=== PATIENT | male | born 1935 | race Caucasian/White ===

== ENCOUNTER 2016-09-19 03:28 | Observation (INO) | payer BC, MEDICARE, OTHER ==
[2016-09-19] MEDS ORDERED: ONDANSETRON 4 MG/2 ML VIAL IVP STA (03:58)
[2016-09-19] MEDS: SODIUM CHLORIDE 0.9% 1,000 ML IV SCH ×3 (04:05→23:21)
--- NOTE | 2016-09-19 04:09 | ED ---
Syncope HPI - General Chief Complaint: Dizziness Stated Complaint: SYNCOPE Time Seen by Provider: 09/19/16 03:38 Source: patient Mode of arrival: EMS Limitations: no limitations - History of Present Illness Initial Comments: Is an 80-year-old male with a history of CAD who presents emergency Department after a syncopal episode. The patient states that he was getting up to go to the bathroom and was urinating. He states that he finished urinating went over to turn off the faucet and all of a sudden states that he woke up on the ground. He did not have any preceding symptoms. He states he has a mild headache and some nausea. He does take a baby aspirin daily. Denies any backache, neck pain, or chest discomfort. He does have an abrasion to his left elbow. No history of syncope in the past. No other complaints. Review of Systems ROS Statement: Those systems with pertinent positive or pertinent negative responses have been documented in the HPI. ROS Other: All systems not noted in ROS Statement are negative. Past Medical History Past Medical History: GERD/Reflux, Myocardial Infarction (PA), Syncope Past Surgical History: Coronary Bypass/CABG Past Psychological History: No Psychological Hx Reported Smoking Status: Never smoker Past Alcohol Use History: None Reported Past Drug Use History: None Reported General Exam - General Exam Comments Initial Comments: Constitutional: Awake alert Appears comfortable Head: Normocephalic , there is a 2 similar laceration to the posterior scalp that is controlled bleeding Eyes: no conjunctival injection No scleral icterus EOMI, pupils are 4 mm reactive bilaterally Neck: No JVD Supple, no midline tenderness Heart: Regular rate rhythm normal S1-S2 no murmurs Lungs: Clear to auscultation bilaterally No wheezing No rales Abdomen: Soft nondistended nontender Extremities: Non edematous DP pulses intact Radial pulses intact, superficial abrasion to the left elbow Neuro: A&Ox3 No focal neurologic deficits Psych: Appropriate mood and affect Limitations: no limitations Course Vital Signs 09/19/16 09/19/16 03:34 04:48 Temperature 98.1 F 98.1 F Pulse Rate 67 99 Respiratory 20 20 Rate Blood Pressure 137/67 156/82 O2 Sat by Pulse 98 98 Oximetry EKG Findings - EKG Comments: EKG Findings:: EKG showing normal sinus rhythm with a rate of 70. There is a right bundle-branch block. QTC is 490. All other intervals are normal. No ectopy. No ST segment changes or T-wave inversions Procedures - Laceration Laceration #1 Time Out Performed: Yes Indication: laceration Site: scalp Size (cm): 2 Description: linear Depth: simple, single layer Pre-repair: irrigated extensively Type of Sutures: other ([place]) Number of Sutures: 3 Technique: simple, interrupted Complications: bleeding Patient Tolerated Procedure: well Medical Decision Making - Medical Decision Making Is an 80-year-old male who presents emergency Department after syncopal episode. Patient was evaluated with blood work and CAT scans. Her breathing appeared unremarkable. EKG showed a right bundle branch block. Due to the nature of the syncopal episode and the fact the patient had absolutely no preceding symptoms and with his history of heart disease and like to keep him in observation on a traffic monitor specialist and have cardiology see him. The patient does see Dr. Curtis as an outpatient. I'll place him in observation and put cardiology consult area Dr. Delacruz accepts the admission. - Lab Data Result diagrams: 09/19/16 04:10 09/19/16 04:10 Lab Results 09/19/16 09/19/16 09/19/16 Range/Units 04:10 04:10 04:10 WBC (3.8-10.6) k/uL RBC (4.30-5.90) m/uL Hgb (13.0-17.5) gm/dL Hct (39.0-53.0) % MCV (80.0-100.0) fL MCH (25.0-35.0) pg MCHC (31.0-37.0) g/dL RDW (11.5-15.5) % Plt Count (150-450) k/uL Neutrophils % % Lymphocytes % % Monocytes % % Eosinophils % % Basophils % % Neutrophils # (1.3-7.7) k/uL Lymphocytes # (1.0-4.8) k/uL Monocytes # (0-1.0) k/uL Eosinophils # (0-0.7) k/uL Basophils # (0-0.2) k/uL PT 10.7 (9.0-12.0) sec INR 1.1 (<1.1) APTT 22.2 (22.0-30.0) sec Sodium 129 L (137-145) mmol/L Potassium 3.9 (3.5-5.1) mmol/L Chloride 94 L (98-107) mmol/L Carbon Dioxide 24 (22-30) mmol/L Anion Gap 11 mmol/L BUN 11 (9-20) mg/dL Creatinine 0.80 (0.66-1.25) mg/dL Est GFR (MDRD) Af Amer >60 (>60 ml/min/1.73 sqM) Est GFR (MDRD) Non-Af >60 (>60 ml/min/1.73 sqM) Glucose 114 H (74-99) mg/dL Calcium 9.4 (8.4-10.2) mg/dL Magnesium 1.8 (1.6-2.3) mg/dL Total Bilirubin 0.9 (0.2-1.3) mg/dL AST 26 (17-59) U/L ALT 41 (21-72) U/L Alkaline Phosphatase 47 (38-126) U/L CK-MB (CK-2) 1.1 (0.0-2.4) ng/mL Troponin I <0.012 (0.000-0.034) ng/mL NT-Pro-B Natriuret Pep pg/mL Total Protein 6.5 (6.3-8.2) g/dL Albumin 4.2 (3.5-5.0) g/dL Serum Alcohol <10 mg/dL 09/19/16 09/19/16 Range/Units 04:10 04:10 WBC 6.3 (3.8-10.6) k/uL RBC 4.82 (4.30-5.90) m/uL Hgb 15.4 (13.0-17.5) gm/dL Hct 44.5 (39.0-53.0) % MCV 92.3 (80.0-100.0) fL MCH 32.0 (25.0-35.0) pg MCHC 34.7 (31.0-37.0) g/dL RDW 12.3 (11.5-15.5) % Plt Count 165 (150-450) k/uL Neutrophils % 70 % Lymphocytes % 19 % Monocytes % 7 % Eosinophils % 1 % Basophils % 0 % Neutrophils # 4.4 (1.3-7.7) k/uL Lymphocytes # 1.2 (1.0-4.8) k/uL Monocytes # 0.4 (0-1.0) k/uL Eosinophils # 0.1 (0-0.7) k/uL Basophils # 0.0 (0-0.2) k/uL PT (9.0-12.0) sec INR (<1.1) APTT (22.0-30.0) sec Sodium (137-145) mmol/L Potassium (3.5-5.1) mmol/L Chloride (98-107) mmol/L Carbon Dioxide (22-30) mmol/L Anion Gap mmol/L BUN (9-20) mg/dL Creatinine (0.66-1.25) mg/dL Est GFR (MDRD) Af Amer (>60 ml/min/1.73 sqM) Est GFR (MDRD) Non-Af (>60 ml/min/1.73 sqM) Glucose (74-99) mg/dL Calcium (8.4-10.2) mg/dL Magnesium (1.6-2.3) mg/dL Total Bilirubin (0.2-1.3) mg/dL AST (17-59) U/L ALT (21-72) U/L Alkaline Phosphatase (38-126) U/L CK-MB (CK-2) (0.0-2.4) ng/mL Troponin I (0.000-0.034) ng/mL NT-Pro-B Natriuret Pep 158 pg/mL Total Protein (6.3-8.2) g/dL Albumin (3.5-5.0) g/dL Serum Alcohol mg/dL Disposition Clinical Impression: Syncope, Scalp laceration Disposition: ADMITTED IP TO THIS [facility] Condition: Stable
[2016-09-19 04:26] LABS: Basophils % (A) 0 %; Eosinophils # (A) 0.1 k/uL (0-0.7); Eosinophils % (A) 1 %; HCT 44.5 % (39.0-53.0); HGB 15.4 gm/dL (13.0-17.5); Luc # (Auto) 0.16; Luc % (Auto) 3; Lymphocytes # (A) 1.2 k/uL (1.0-4.8); Lymphocytes % (A) 19 %; MCHC 34.7 g/dL (31.0-37.0); MCV 92.3 fL (80.0-100.0); Mean Platelet Volume 6.4; Monocytes # (A) 0.4 k/uL (0-1.0); Monocytes % (A) 7 %; Neutrophils # (A) 4.4 k/uL (1.3-7.7); Neutrophils % (A) 70 %; RBC 4.82 m/uL (4.30-5.90); RDW 12.3 % (11.5-15.5); WBC 6.3 k/uL (3.8-10.6)
[2016-09-19 04:36] LABS: ALT 41 U/L (21-72); AST 26 U/L (17-59); Alcohol <10 mg/dL; Alkaline Phosphatase 47 U/L (38-126); Anion Gap 11 mmol/L; Blood Urea Nitrogen 11 mg/dL (9-20); Calcium 9.4 mg/dL (8.4-10.2); Carbon Dioxide 24 mmol/L (22-30); Chloride 94 mmol/L (98-107); Glucose 114 mg/dL (74-99); Magnesium 1.8 mg/dL (1.6-2.3); Non-African American GFR(MDRD) >60 (>60 ml/min/1.73 sqM); Potassium 3.9 mmol/L (3.5-5.1); Sodium 129 mmol/L (137-145); Total Bilirubin 0.9 mg/dL (0.2-1.3); Total Protein 6.5 g/dL (6.3-8.2)
[2016-09-19 04:42] LABS: INR 1.1 (<1.1); Partial Thromboplastin Time 22.2 sec (22.0-30.0); Prothrombin Time 10.7 sec (9.0-12.0)
--- NOTE | 2016-09-19 04:53 | XR ---
EXAMINATION TYPE: XR chest 2V DATE OF EXAM: 09/19/2016 4:47 AM COMPARISON: 04/28/2011 HISTORY: Syncope and collapse TECHNIQUE: Frontal and lateral views of the chest are obtained. FINDINGS: There is no focal air space opacity, pleural effusion, or pneumothorax seen. The cardiac silhouette size is within normal limits. Postsurgical changes of sternotomy are present. Atherosclero tic calcification is noted in the aortic arch. The osseous structures are intact. IMPRESSION: 1. No acute cardiopulmonary process. 2. No significant interval change.
[2016-09-19 04:55] LABS: Creatine Kinase MB 1.1 ng/mL (0.0-2.4); Troponin I <0.012 ng/mL (0.000-0.034)
--- NOTE | 2016-09-19 05:01 | CT ---
EXAMINATION TYPE: CT brain ambrose wo con DATE OF EXAM: 09/19/2016 4:46 AM COMPARISON: 04/28/2011 HISTORY: syncope and collapse CT DLP: head:1162.80 body 335.60 mGycm Automated exposure control for dose reduction was used. TECHNIQUE: CT scan of the head and cervical spine are performed without contrast. FINDINGS: There is no acute intracranial hemorrhage, mass effect, or midline shift identified. The cortical sulci and ventricles are prominent with age-related atrophic changes of brain. Chronic white matter ischemic changes are noted bilaterally.. Mild ectatic changes are noted in the bilateral supr aclinoid internal carotid arteries. The globes are intact. Mucus retention cyst is noted in the right maxillary sinus with chronic sinus itis changes. Cervical spine is visualized in its entirety from C1 through upper thoracic levels and demonstrates s atisfactory alignment without evidence of acute fracture or dislocation. Prevertebral soft tissue ap pears within normal limits. The C1-C2 articulation is unremarkable. Multilevel [id number] degenerative disc disease changes are noted in the cervical spine especia lly at the levels of C3-C4, C4-C5 and C5-C6 and C6-C7 with a disc osteophyte complexes and mild leobardo lily and canal narrowing.. Carotid arterial calcification is noted. Benign-appearing calcifications are noted in the posterior s david muscles. IMPRESSION: 1. No acute process in the brain. 2. Age-related atrophic changes of brain. 3. Sinusitis changes. 4. No definite acute fracture is noted in the cervical spine. 5. Multilevel degenerative changes in the cervical spine.
[2016-09-19] MEDS ORDERED: NALOXONE 0.4 MG/ML 1 ML VIAL IV PRN (05:18)
[2016-09-19 06:11] VITALS: RESP 18
[2016-09-19 07:12] VITALS: BMI 25.2
[2016-09-19 07:28] LABS: Amorphous Sediment,Urine Rare /hpf; Appearance,Urine Cloudy (Clear); Bilirubin,Urine Negative (Negative); Glucose,Urine (UA) Negative (Negative); Ketones,Urine Trace (Negative); Leukocyte Esterase,Urine Negative (Negative); Mucus,Urine Rare /hpf; Nitrite,Urine Negative (Negative); PH, Urine 7.5 (5.0-8.0); Particle Count 7390; Protein,Urine Negative (Negative); RBC,Urine 2 /hpf (0-5); Sperm,Urine Rare /hpf; UA Billing (MACRO vs. MICRO) MICRO; Urobilinogen,Urine <2.0 mg/dL (<2.0)
--- NOTE | 2016-09-19 09:23 | US ---
EXAMINATION TYPE: US carotid duplex BILAT DATE OF EXAM: 09/19/2016 9:04 AM COMPARISON: NONE CLINICAL HISTORY: syncope. Patient states he fell at home and woke up on the floor, does not remember falling. EXAM MEASUREMENTS: RIGHT: Peak Systolic Velocity (PSV) cm/sec ----- Right CCA: 95.5 ----- Right ICA: 85.6 ----- Right ECA: 115.1 ICA/CCA ratio: 0.9 RIGHT: End Diastole cm/sec ----- Right CCA: 14.2 ----- Right ICA: 17.5 ----- Right ECA: 11.5 LEFT: Peak Systolic Velocity (PSV) cm/sec ----- Left CCA: 121.0 ----- Left ICA: 84.5 ----- Left ECA: 114.5 ICA/CCA ratio: 0.7 LEFT: End Diastole cm/sec ----- Left CCA: 14.4 ----- Left ICA: 17.5 ----- Left ECA: 12.8 VERTEBRALS (direction of flow): Right Vertebral: Antegrade Left Vertebral: Antegrade IMPRESSION: No significant stenosis seen, mild bilateral plaque. Patient states he has his carotids looked at yearly through cardiac associates. Criteria for Assigning % of Stenosis / Diameter reduction (Estimation based on the indirect measurements of the internal carotid artery velocities (ICA PSV). 1. Normal (no stenosis)=ICA PSV < 125 cm/s: ratio < 2.0: ICA EDV<40 cm/s. 2. Less than 50% stenosis=ICA PSV < 125 cm/s: ratio < 2.0: ICA EDV<40 cm/s. 3. 50 to 69% stenosis=ICA PSV of 125 to 230 cm/s: ration 2.0 ? 4.0: ICA EDV 40-100 cm/s. 4. Greater than 70% stenosis to near occlusion= ICA PSV > 230 cm/s: ratio > 4.0: ICA EDV > 100 cm/s. 5. Near occlusion= ICA PSV velocities may be low or undetectable: variable ratio and ICA EDV. 6. Total occlusion=unable to detect flow.
--- NOTE | 2016-09-19 11:17 | CONS ---
DATE OF CONSULTATION: CHIEF COMPLAINT: Syncope. Clif is an 80-year-old gentleman with history of coronary artery disease, status post CABG, who comes to the hospital having had an episode of syncope. The patient got up in the middle of the night to go to bathroom and suddenly found himself on the floor. He had mild laceration in his arm and then in the back of his head. He was somewhat incontinent. he denies chest pain, difficulty in breathing. No focal neurological deficit. It came on spontaneously and resolved on its own. It was a severe problem. At the time of my evaluation this morning, patient appears comfortable at rest and is free of symptoms. He has had one set of troponin that is negative. EKG shows bifascicular block. The patient's syncope could be related to bradyarrhythmia, but so far we have not documented any. We are going to watch him on telemetry, obtain serial CPKs, obtain a d-dimer to rule out pulmonary embolism. I reviewed his work-up and I will make every effort to obtain his records from the office. He sees my associate, Dr. Curtis. Past medical history is significant for coronary artery disease, status post CABG, dyslipidemia, also hypertension and vertigo. MEDICATIONS: He is on Crestor 10 mg daily, ramipril 10 daily, Antivert 25 t.i.d. on a p.r.n. basis, HydroDIURIL, aspirin and vitamins. ALLERGIES: No known drug allergies. FAMILY HISTORY: Negative for premature coronary artery disease. SOCIAL HISTORY: Negative for smoking, EtOH abuse, or drug abuse. REVIEW OF SYSTEMS: HEENT: Unremarkable. CARDIAC: As described above. RESPIRATORY: Negative. GI: Negative. GENITOURINARY: Negative. ALLERGY/IMMUNOLOGY: Negative. SKIN: Negative. MUSCULOSKELETAL: Negative. ENDOCRINE: Negative. DERMATOLOGIC: Negative. CONSTITUTIONAL: Negative. NEUROLOGICAL: Significant for syncope. HEME: Negative. ONCOLOGICAL: Negative. On exam he is comfortable at rest. Afebrile. Vital signs are stable. There is no jugular venous distention. Carotid upstroke is normal. There is no bruit. Chest exam reveals good air entry bilaterally. Heart exam reveals first and second heart sounds and a systolic murmur at the apex and an ejection systolic murmur in the aortic area. Abdomen is soft. Exam of the extremities did not reveal any edema. Peripheral pulses are felt. Orthostatics are to be documented. Labs show a hemoglobin of 15.4, platelet count is 165. Creatinine is 0.8. Potassium is 3.9. BNP is normal. The first troponin is negative. Alcohol level is negative. ASSESSMENT: 1. Syncope; rule out cardiac causes. 2. Coronary artery disease, status post coronary artery bypass graft. 3. Abnormal EKG. 4. Hypertension. 5. Dyslipidemia. PLAN: I am going to obtain a 2-D echo, carotid duplex continue with the troponins, watch him on telemetry. If there are no documented bradyarrhythmias and his initial work-up is negative, we should be able to discharge him home tomorrow morning and arrange follow-up with Dr. Curtis to consider further work-up as outpatient including loop recorder and stress test. There is a high clinical probability that we are dealing with the bradycardia as a cause for his syncope.
[2016-09-19 12:15] LABS: Creatine Kinase 45 U/L (55-170)
[2016-09-19 12:29] LABS: Creatine Kinase MB 0.9 ng/mL (0.0-2.4); Troponin I <0.012 ng/mL (0.000-0.034)
--- NOTE | 2016-09-19 14:49 | HP ---
DATE OF ADMISSION: CHIEF COMPLAINT: Syncope. HISTORY OF PRESENT ILLNESS: Mr. Rodriges is an 80-year-old male with a past medical history of coronary artery disease, status post coronary artery bypass graft, GERD, hyperlipidemia, hypertension, admitted to the hospital after having a syncopal episode at home. Patient does not remember what happened but his is at the bedside and stated that he woke up around quarter to twelve in the night and she thought he was going to the bathroom but when she checked on him around 12, he was found in the bathroom sitting on a chair and had a laceration in the back of his head. The patient states he does not remember what has happened but he woke up the night to use the restroom and then tried to urinate and does not remember what happened after that her. The patient had laceration with two sutures that were done in the ER. Patient denies having any chest pain. No blurring of vision. No focal weakness. No slurring of his speech. No tongue bite. Patient is compliant with his medications. Denies having any fevers. He states that he was in his usual health the night before when he went to bed. REVIEW OF SYSTEMS: All 13 review of systems are done and negative except for the ones mentioned above. Past medical history significant for coronary artery disease, GERD, hypertension. PAST SURGICAL HISTORY: Positive for coronary artery bypass grafting, CABG. PAST SURGICAL HISTORY: Adenoidectomy, appendectomy and a tonsillectomy. SOCIAL HISTORY: Never a smoker. Occasional alcohol and no drug abuse. FAMILY HISTORY: Positive for coronary artery disease and stroke and TIA and lung cancer. ALLERGIES: No known drug allergies. The patient's home medications: 1. He is on glucosamine/chondroitin sulfate supplements. 2. Aspirin 320 mg p.o. daily. 3. Ramipril 10 mg p.o. daily. 4. Crestor 10 mg p.o. daily. 5. Hydrochlorothiazide 25 mg p.o. daily. 6. Meclizine 12.5 mg 3 times a day for vertigo. On examination, patient's vital signs temperature 97, heart rate 74, respiratory rate 18, blood pressure 144/72, saturating at 98% on room air. GENERAL EXAMINATION: Patient appears to be no acute distress, sitting comfortably in the bed, appears to have no complaints. HEAD: Atraumatic, normocephalic. EYES: Pupils, round, and reactive to light. NECK: No JVD. No thyromegaly. CARDIOVASCULAR: S1, S2 heard. No additional sounds. RESPIRATORY: Bilateral breath sounds are positive. No wheeze or crackles. ABDOMEN: Soft, nontender, no organomegaly. Bowel sounds are positive. EXTREMITIES: No edema. No cyanosis, no clubbing. SHIPPING RECEIVING MANAGER: Alert and oriented times three. No focal neurological deficits. MUSCULOSKELETAL: No joint swelling or deformity. PSYCHIATRIC: Appropriate mood and affect. Patient's labs: Sodium 129, potassium 3.9, chloride 94, bicarb 24, BUN 11, creatinine 0.80. Troponin less than 0.012 x 2, white count is 6.3, hemoglobin is of 15.4, platelets of 165, d-dimer is 0.30. The patient had a CAT scan of his head and neck, negative for any acute process and a chest x-ray which is showing no acute cardiopulmonary process, carotid artery Doppler that was done showing no significant stenosis but mild bilateral plaque seen. ASSESSMENT AND PLAN: 1. Syncope most likely it is vasovagal secondary to arrhythmias. 2. History of coronary artery disease, status post coronary artery bypass graft. 3. Hypertension. 4. Gastroesophageal reflux disease. 5. Vertigo. 6. Hearing disorder. 7. Chronic osteoarthritis of multiple joints. PLAN: The patient is being worked up for syncopal episode. He had a carotid artery Doppler. A CT scan of his head was negative. Echocardiogram pending at this point of time. Syncope can be secondary to vasovagal episode of bradyarrhythmias. We will monitor overnight for any other ( ). Further recommendations to follow depending on the progress of the patient and the treatment care plan was discussed in detail with the and daughter, who are at the bedside.
[2016-09-19 17:25] LABS: Creatine Kinase 54 U/L (55-170)
[2016-09-19 17:38] LABS: Creatine Kinase MB 0.9 ng/mL (0.0-2.4); Troponin I <0.012 ng/mL (0.000-0.034)
[2016-09-20 08:02] VITALS: BP 148/67; PULSE 58; TEMP 98.2
[2016-09-20] MEDS ORDERED: ASPIRIN 325 MG TAB PO SCH (09:00)
[2016-09-20] MEDS ORDERED: LISINOPRIL 20 MG TAB PO SCH (09:00)
[2016-09-20] MEDS ORDERED: ATORVASTATIN 20 MG TAB PO SCH (09:00)
--- NOTE | 2016-09-20 09:08 | PN ---
This is an 80-year-old gentleman who is admitted to hospital with syncope. His work-up so far has been negative. Carotid duplex study did not reveal significant carotid stenosis. An echocardiogram, official report is not available to me, showed normal LV function and he did not have any documented high-grade AV block. He has bradycardia with heart rates dropping as far 45 but no pauses, but has underlying bifascicular block. He has not had any further syncopal events and wants to go home. On exam he is comfortable at rest. Vital signs are stable. There is no jugular venous distention. Carotid upstroke is normal. There is no bruit. Chest exam reveals good air entry bilaterally. Heart exam reveals first and second heart sounds. Systolic murmur at the left lower sternal border. Abdomen is soft. Exam of extremities did not reveal edema. Peripheral pulses are felt. ASSESSMENT: 1. Syncope. 2. Abnormal electrocardiogram. 3. History of coronary artery disease, status post coronary artery bypass graft. PLAN: Patient is doing well. He is stable to be discharged home. His syncope could be due to bradycardia and the patient will benefit from ( ). He is going to follow up with Dr. Curtis, his primary ingredient handler.
--- NOTE | 2016-09-21 17:28 | DS ---
DATE OF ADMISSION: 09/19/2016 DATE OF DISCHARGE: 09/20/2016 HOSPITAL COURSE: Mr. Rodriges is an 80-year-old male with a past medical history of coronary artery disease, status post coronary artery bypass graft, GERD, hypertension, hyperlipidemia, admitted to the hospital after having a syncopal episode at home. Patient did have laceration in the back of his skull that has been sutured in the ER. Cardiology was consulted for his syncopal episode. Patient had also had CAT scan of his head which was within normal limits. Carotid artery Doppler within normal limits. He was slightly bradycardic and cardiology did follow the patient and cleared the patient to be discharged as there were no acute events on his athletic monitor. Patient states that he is back to baseline and denies having any complaints. Consults obtained: Cardiology. Procedures done during hospital stay: Carotid artery Doppler, CAT scan of the chest that have been within normal limits. DISCHARGE DIAGNOSES: 1. Syncope secondary to vasovagal arrhythmias. 2. History of coronary artery disease, status post coronary artery bypass graft. 3. Hypertension. 4. Gastroesophageal reflux disease. 5. Vertigo. 6. Hearing disorder. 7. Chronic osteoarthritis of multiple joints. DISCHARGE MEDICATIONS: 1. Aspirin 325 mg p.o. daily. 2. Flonase one spray each nostril for congestion. 3. Glucosamine chondroitin 1 tablet p.o. daily. 4. Hydrochlorothiazide 25 mg p.o. daily. 5. Meclizine 12.5 mg p.o. 3 times a day p.r.n. for vertigo. 6. Ramipril 10 mg p.o. daily. 7. ( ) 10 mg p.o. daily. 8. Vitamin supplements 1 tablet p.o. daily. Follow-up: The patient is advised to follow up with Dr. Curtis in 1 to 2 weeks. As there was a suspicion for any underlying arrhythmias, patient would be benefited by having a loop recorder. This was explained to the patient and his family members at the bedside. DIET: Cardiac diet. Activity as tolerated and follow-up: Advised to follow up with his primary care physician Dr. Dumont in 2 to 3 days and cardiology, Dr. Curtis in one week. The patient is being discharged home in stable condition today.
--- NOTE | 2016-09-22 09:54 | ECHOF ---
Referral Reason:syncope MEASUREMENTS -------- HEIGHT: 172.7 cm WEIGHT: 75.3 kg BP: 144/72 IVSd: 1.0 cm (0.6 - 1.1) LVIDd: 4.7 cm (3.9 - 5.3) LVPWd: 1.2 cm (0.6 - 1.1) IVSs: 2.0 cm LVIDs: 2.0 cm LVPWs: 1.8 cm Ao Diam: 3.6 cm (2.0 - 3.7) AV Cusp: 1.5 cm (1.5 - 2.6) LA Diam: 2.5 cm (2.7 - 3.8) MV EXCURSION: 14.924 mm (> 18.000) MV EF SLOPE: 62 mm/s (70 - 150) EPSS: 0.7 cm MV E Rolo: 0.78 m/s MV DecT: 269 ms MV A Rolo: 0.87 m/s MV E/A Ratio: 0.89 AR PHT: 219 ms RAP: 5.00 mmHg RVSP: 12.67 mmHg FINDINGS -------- Sinus rhythm. This was a technically good study. There is mild concentric left ventricular hypertrophy. Overall left ventricular systolic function is normal with, an EF between 55 - 60 %. The right ventricle is normal in size and function. The left atrium is normal in size. The right atrium is normal in size. Aortic valve is trileaflet and is mildly thickened. There is mild aortic regurgitation. The mitral valve leaflets are mildly thickened. Mild mitral annular calcification present. Mild mitral regurgitation is present. Mild tricuspid regurgitation present. The right ventricular systolic pressure, as measured by Doppler, is 12.67mmHg. Pulmonic valve appears structurally normal. The aortic root size is normal. The pericardium is normal. CONCLUSIONS -------- 1. Sinus rhythm. 2. The mitral valve leaflets are mildly thickened. 3. Mild mitral annular calcification present. 4. Mild mitral regurgitation is present. 5. Mild tricuspid regurgitation present. 6. The right ventricular systolic pressure, as measured by Doppler, is 12.67mmHg. 7. Pulmonic valve appears structurally normal. 8. The aortic root size is normal. 9. The pericardium is normal. 10. This was a technically good study. 11. There is mild concentric left ventricular hypertrophy. 12. Overall left ventricular systolic function is normal with, an EF between 55 - 60 %. 13. The right ventricle is normal in size and function. 14. The left atrium is normal in size. 15. The right atrium is normal in size. 16. Aortic valve is trileaflet and is mildly thickened. 17. There is mild aortic regurgitation. PRINTED CIRCUIT BOARDS SOLDER LEVELER: Danita Ordoñez RDCS
== END 2016-09-20 11:31 | disposition home or self-care (01) ==
LOC: EC 03:28 → 3OBS 05:19
PROVIDERS: ADMIT Hospitalist; ATTEND Hospitalist
DX: R00.1 Bradycardia, unspecified (principal); I45.2 Bifascicular block; I25.10 Atherosclerotic heart disease of native coronary artery without angina pectoris; R55 Syncope and collapse; R42 Dizziness and giddiness; I10 Essential (primary) hypertension; E78.5 Hyperlipidemia, unspecified; S01.01XA Laceration without foreign body of scalp, initial encounter; I25.2 Old myocardial infarction; I45.10 Unspecified right bundle-branch block; K21.9 Gastro-esophageal reflux disease without esophagitis; M15.9 Polyosteoarthritis, unspecified; Z82.3 Family history of stroke; Z95.1 Presence of aortocoronary bypass graft; R51 Headache; R11.0 Nausea; S50.312A Abrasion of left elbow, initial encounter; H91.90 Unspecified hearing loss, unspecified ear; W19.XXXA Unspecified fall, initial encounter; Y93.89 Activity, other specified; Y92.002 Bathroom of unspecified non-institutional (private) residence as the place of occurrence of the external cause; Z79.82 Long term (current) use of aspirin; Z79.899 Other long term (current) drug therapy
CPT/HCPCS: 12001; 99285; 96374; 96361 ×2; 36415; 93005; 93306; 85379; 83880; 80053; 82550; 82553; 83735; 84484; 85025; 85610; 85730; 81001; 80320; 71020; 93880; 72125; 70450; G0378 ×2; J2405

== ENCOUNTER → 2016-10-07 | Outpatient (CLI) | payer MEDICARE ==
[2016-10-07 08:02] LABS: Anion Gap 10 mmol/L; Blood Urea Nitrogen 14 mg/dL (9-20); Calcium 9.4 mg/dL (8.4-10.2); Carbon Dioxide 26 mmol/L (22-30); Chloride 106 mmol/L (98-107); Cholesterol 137 mg/dL (<200); Glucose 111 mg/dL (74-99); HDL Cholesterol 57 mg/dL (40-60); Non-African American GFR(MDRD) >60 (>60 ml/min/1.73 sqM); Potassium 4.9 mmol/L (3.5-5.1); Sodium 142 mmol/L (137-145); Triglycerides 56 mg/dL (<150)
== END | disposition home or self-care (01) ==
LOC: LABWHC1 07:09
PROVIDERS: ATTEND Internal Medicine Cardiovascular Disease
DX: I25.10 Atherosclerotic heart disease of native coronary artery without angina pectoris (principal); E78.5 Hyperlipidemia, unspecified; E87.1 Hypo-osmolality and hyponatremia
CPT/HCPCS: 36415; 80048; 80061

== ENCOUNTER 2017-01-27 12:05 | Day surgery (SDC) | payer MEDICARE ==
[2017-01-25 16:13] VITALS: BMI 24.7
[~2017-01-27 12:05] MED LIST: LACTATED RINGERS 1,000 ML IV SCH; LIDOCAINE 1% 20 ML VIAL (10MG/ML) FOR IV START INTRADERMA PRN; MOXIFLOXACIN HCL 0.5% DROPS 3 ML BTL OP ONE; ONDANSETRON 4 MG/2 ML VIAL IVP ONE; TETRACAINE 0.5% OPHTH (PF) DROPS 4 ML BTL OP ONE; TIMOLOL 0.5% OPHTH SOLN (PF) 0.2 ML DROPERETTE OP ONE
[2017-01-27] MEDS: CYCLOPENTOLATE 1% OPHTH SOLN 2 ML BTL OP ONE ×4 (12:58→14:45)
[2017-01-27] MEDS: PHENYLEPHRINE 2.5% OPHTH DRP 2ML OP NR ×4 (13:01→14:49)
[2017-01-27 13:06] VITALS: RESP 16; TEMP 97.4
[2017-01-27] MEDS ORDERED: EPINEPHrine (PF) 0.3 ML in BALANCED SALT IRRIG SOLN COMB2 500 ML IRRIGATION ONE (15:18)
[2017-01-27] MEDS ORDERED: HYALURONATE SODIUM INTRAOCULAR 1 EACH SYRINGE (12MG/ML) INTRAOCULA ONE (15:22)
[2017-01-27] MEDS ORDERED: LIDOCAINE 1% (PF) 10MG/ML VIAL MISCELLANE ONE (15:22)
[2017-01-27] MEDS ORDERED: BALANCED SALT IRRIG SOLN COMB2 15 ML IRRIG.SOLN INTRAOCULA ONE (15:22)
--- NOTE | 2017-01-27 15:40 | P.OP ---
Date of Procedure: 01/27/17 Preoperative Diagnosis: NS Postoperative Diagnosis: same Procedure(s) Performed: PIOL, OS Implants: PCB00 20.50 Anesthesia: MAC Surgeon: Migue Dean Estimated Blood Loss (ml): 0 IV fluids (ml): 0 Pathology: none sent Condition: stable Disposition: same day Indications for Procedure: blurry vision Operative Findings: No complications Description of Procedure:
[2017-01-27 16:00] VITALS: BP 146/71; PULSE 62
--- NOTE | 2017-01-28 09:02 | OP ---
DATE OF SERVICE: 01/27/2017 SURGEON: LINDSAY FERGUSON MD OFFICE SUPERVISOR: PREOPERATIVE DIAGNOSIS: Nuclear sclerosis. POSTOPERATIVE DIAGNOSIS: Nuclear sclerosis. OPERATION: Phacoemulsification of cataract and intraocular lens implant of the left eye. ANESTHESIA: ESTIMATED BLOOD LOSS: Zero. SPECIMENS REMOVED: None. COMPLICATIONS: OPERATIVE FINDINGS: NARRATIVE: After obtaining the appropriate consent, the patient was brought to the Operating Room where the patient was placed under cardiac monitoring and prepped and draped in the usual sterile manner. At the 5 o'clock position a 15 degree super sharp blade was used to create a paracentesis followed by instillation of 1% Xylocaine MPF 50:50 mix with BSS into the anterior chamber. This was followed by Amvisc to stabilize the anterior chamber. At the 3 o'clock position a self-sealing corneal flap incision was created using 2.8 mm reina keratome. A cystotome was used to initiate a continuous tear capsulorrhexis which was completed with the Utrata forceps. A Binkhorst cannula was used to hydrodissect the lens nucleus followed by hydrodelineation. Phacoemulsification of the lens was performed utilizing phacochop in 25.44 seconds at 9% power. The remaining cortical material was removed using the irrigation aspiration mode followed by additional 1% Xylocaine MPF into the anterior chamber followed by viscoelastic to stabilize the capsular bag. An RAYMOND PCB00 20.5 Diopter posterior chamber lens was placed into the capsular bag without difficulty. The remaining viscoelastic material was removed from the anterior chamber with the irrigation/aspiration. Balanced salt solution was used to normalize the intraocular pressure. The incision was checked for watertight integrity. The patient then received 2 drops of 0.5% timolol followed by 2 drops Vigamox, was lightly patched and shielded in the usual manner. There were no complications from the procedure. The patient tolerated the procedure well and was returned to recovery in good condition.
== END 2017-01-27 16:22 | disposition home or self-care (01) ==
LOC: OR 12:05
PROVIDERS: ATTEND Ophthalmology
DX: H25.12 Age-related nuclear cataract, left eye (principal); Z79.82 Long term (current) use of aspirin; Z95.1 Presence of aortocoronary bypass graft; I10 Essential (primary) hypertension; I25.10 Atherosclerotic heart disease of native coronary artery without angina pectoris; E78.5 Hyperlipidemia, unspecified; K21.9 Gastro-esophageal reflux disease without esophagitis; Z79.899 Other long term (current) drug therapy
CPT/HCPCS: 66984; C1780; J2405; J0171; J2001

== ENCOUNTER 2017-02-10 06:57 | Day surgery (SDC) | payer MEDICARE ==
[~2017-02-10 06:57] MED LIST changes: +DEXAMETHASONE SOD PHOSPHATE 10 MG/ML 1 ML VIAL IV ONE; +HYDROmorphone 1 MG/ML 1 ML SYRINGE IVP PRN; +MIDAZOLAM 2 MG/2 ML VIAL IV PRN; +SCOPOLAMINE 1.5MG/72HR PATCH TRANSDERM ONE
[2017-02-10] MEDS: CYCLOPENTOLATE 1% OPHTH SOLN 2 ML BTL OP ONE ×3 (07:12→07:32)
[2017-02-10 07:15] VITALS: TEMP 97.8
[2017-02-10] MEDS: PHENYLEPHRINE 2.5% OPHTH DRP 2ML OP NR ×3 (07:17→07:37)
[2017-02-10] MEDS ORDERED: EPINEPHrine (PF) 0.3 ML in BALANCED SALT IRRIG SOLN COMB2 500 ML IRRIGATION ONE (08:45)
[2017-02-10] MEDS ORDERED: MIDAZOLAM 2 MG/2 ML VIAL ONE (08:45)
[2017-02-10] MEDS ORDERED: HYALURONATE SODIUM INTRAOCULAR 1 EACH SYRINGE (12MG/ML) INTRAOCULA ONE (08:50)
[2017-02-10] MEDS ORDERED: BALANCED SALT IRRIG SOLN COMB2 15 ML IRRIG.SOLN IRRIGATION ONE (08:50)
[2017-02-10] MEDS ORDERED: LIDOCAINE 1% (PF) 10MG/ML VIAL MISCELLANE ONE (08:51)
--- NOTE | 2017-02-10 09:16 | P.OP ---
Date of Procedure: 02/10/17 Preoperative Diagnosis: NS Postoperative Diagnosis: same Procedure(s) Performed: PIOL, OD Implants: PCB00 20.50 Anesthesia: MAC Surgeon: Migue Dean Estimated Blood Loss (ml): 0 IV fluids (ml): 0 Pathology: none sent Condition: stable Disposition: same day Indications for Procedure: blurry vision Operative Findings: No complications Description of Procedure:
[2017-02-10 09:43] VITALS: BP 185/86; PULSE 57
--- NOTE | 2017-02-13 14:09 | OP ---
PROCEDURE: Phacoemulsification of cataract and intraocular lens implant of the right eye. PREOPERATIVE DIAGNOSIS: Nuclear sclerosis. Viscoelastic is Amvisc. Phacoemulsification time is 17.29 seconds at 9% power. Implant is an [id number] 20.5 diopters. MTDD
== END 2017-02-10 09:58 | disposition home or self-care (01) ==
LOC: OR 06:57
PROVIDERS: ATTEND Ophthalmology
DX: H25.11 Age-related nuclear cataract, right eye (principal); H04.123 Dry eye syndrome of bilateral lacrimal glands; H52.03 Hypermetropia, bilateral; H52.4 Presbyopia; H00.023 Hordeolum internum right eye, unspecified eyelid; H00.026 Hordeolum internum left eye, unspecified eyelid; I10 Essential (primary) hypertension; I25.10 Atherosclerotic heart disease of native coronary artery without angina pectoris; E78.5 Hyperlipidemia, unspecified; Z87.891 Personal history of nicotine dependence; H91.90 Unspecified hearing loss, unspecified ear; K21.9 Gastro-esophageal reflux disease without esophagitis; Z96.1 Presence of intraocular lens; Z95.1 Presence of aortocoronary bypass graft; Z79.899 Other long term (current) drug therapy; Z79.82 Long term (current) use of aspirin
CPT/HCPCS: 66984; C1780; J2250; J0171; J2001

== ENCOUNTER → 2017-11-02 | Outpatient (CLI) | payer MEDICARE ==
[2017-11-02 08:04] LABS: ALT 30 U/L (21-72); AST 22 U/L (17-59); Cholesterol 149 mg/dL (<200); HDL Cholesterol 61 mg/dL (40-60); LDL Cholesterol,Calculated 74 mg/dL (0-99); Triglycerides 72 mg/dL (<150)
== END | disposition home or self-care (01) ==
LOC: LABWHC1 06:46
PROVIDERS: ATTEND Internal Medicine Cardiovascular Disease
DX: E78.5 Hyperlipidemia, unspecified (principal)
CPT/HCPCS: 36415; 80061; 84450; 84460

== ENCOUNTER → 2019-07-04 | Outpatient (CLI) | payer MEDICARE ==
[2019-07-04 08:46] LABS: Basophils % (A) 1 %; Eosinophils # (A) 0.2 k/uL (0-0.7); Eosinophils % (A) 5 %; HCT 47.6 % (39.0-53.0); HGB 16.1 gm/dL (13.0-17.5); Lymphocytes # (A) 1.6 k/uL (1.0-4.8); Lymphocytes % (A) 33 %; MCH 32.5 pg (25.0-35.0); MCHC 33.8 g/dL (31.0-37.0); MCV 96.1 fL (80.0-100.0); Mean Platelet Volume 6.6; Monocytes # (A) 0.3 k/uL (0-1.0); Monocytes % (A) 6 %; Neutrophils # (A) 2.6 k/uL (1.3-7.7); Neutrophils % (A) 54 %; Platelet Count 153 k/uL (150-450); RBC 4.95 m/uL (4.30-5.90); RDW 12.7 % (11.5-15.5); WBC 4.9 k/uL (3.8-10.6)
[2019-07-04 15:51] LABS: African American GFR (CKD) 90.6 (60.0-200.0); Albumin 4.5 g/dL (3.80-4.90); Albumin/Globulin Ratio 2.65 (1.60-3.17); Anion Gap 8.8 mmol/L (4.00-12.00); BUN/Creat Ratio 13.33 Ratio (12.00-20.00); Calcium 9.3 mg/dL (8.7-10.3); Carbon Dioxide 26.2 mmol/L (21.6-31.8); Chol/HDL Ratio 2.82; Globulin 1.7 g/dL (1.6-3.3); LDL Cholesterol,Calculated 87.4 mg/dL (0.0-131.0); Non-African American GFR(CKD) 78.2 (60.0-200.0); Potassium 4.7 mmol/L (3.5-5.5); Total Protein 6.2 g/dL (6.2-8.2); VLDL Calculation 14.6 mg/dL (5.00-40.00)
== END | disposition home or self-care (01) ==
LOC: LABWHC1 07:38
PROVIDERS: ATTEND Family Medicine
DX: I10 Essential (primary) hypertension (principal); E11.9 Type 2 diabetes mellitus without complications; R97.20 Elevated prostate specific antigen [PSA]; Z79.899 Other long term (current) drug therapy
CPT/HCPCS: 36415; 80053; 80061; 82306; 84153; 84443; 85025

== ENCOUNTER → 2020-03-16 | Outpatient (CLI) | payer MEDICARE ==
--- NOTE | 2020-03-16 08:59 | CT ---
EXAMINATION TYPE: CT lumbar spine wo con DATE OF EXAM: 03/16/2020 COMPARISON: None HISTORY: Low back pain with right leg weakness. CT DLP: 546.[address] of the lumbar spine was performed. Bone and soft tissue window settings are submitted as well as coronal and sagittal reconstructions. L1-L2: Severe degenerative disc space narrowing. Mild ventral spondylosis. No disc herniation protrus ion or central stenosis. No facet joint arthropathy. No evidence for foraminal encroachment. L2-L3: Severe degenerative disc space narrowing. Mild ventral spondylosis. Mild posterior disc bulge with left lateral recess stenosis. No disc herniation protrusion or central stenosis. No facet joint arthropathy. No evidence for foraminal encroachment. L3-L4: Severe degenerative disc space narrowing. Mild ventral spondylosis. Posterior disc bulge. Hype rtrophy ligamentum flavum and facet joint arthropathy resulting in [id number] central stenosis. Right greater than left foraminal encroachment. L4-L5: Severe disc space narrowing. Right paracentral disc herniation results in effacement of the ve ntral thecal sac, mild central stenosis and right lateral recess stenosis. Moderate facet joint arth ropathy. Mild bilateral foraminal encroachment. L5-S1: Degenerative disc space narrowing. Ventral and dorsal spondylosis. Paracentral and to the left heart disc resulting in left lateral recess stenosis and severe left foraminal encroachment. No cent ral stenosis identified. No paraspinal masses are identified. Lumbar segments are free if fracture. Incidental right-sided re nal calculus. IMPRESSION: 1. Low degenerative disc disease. 2. 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 Mild central stenosis or lateral recess stenosis L4-5. 3. Left paracentral hard disc at L5-S1 resulting in left lateral recess stenosis and left foraminal e ncroachment.
== END | disposition home or self-care (01) ==
LOC: RADCTMAIN 07:37
PROVIDERS: ATTEND Physical Medicine & Rehabilitation
DX: M48.061 Spinal stenosis, lumbar region without neurogenic claudication (principal); M48.07 Spinal stenosis, lumbosacral region; M51.16 Intervertebral disc disorders with radiculopathy, lumbar region
CPT/HCPCS: 72131

== ENCOUNTER → 2020-10-04 | Outpatient (CLI) | payer MEDICARE ==
[2020-10-04 11:26] LABS: Basophils # (A) 0.05 X 10*3/uL (0.00-0.10); Basophils % (A) 0.9 %; Eosinophils # (A) 0.32 X 10*3/uL (0.04-0.35); Eosinophils % (A) 5.7 %; HCT 46.7 % (39.6-50.0); HGB 16.2 g/dL (13.0-17.0); Lymphocytes # (A) 2.14 X 10*3/uL (0.90-5.00); Lymphocytes % (A) 38.4 %; MCH 32.7 pg (27.0-32.0); MCHC 34.7 g/dL (32.0-37.0); MCV 94.3 fL (80.0-97.0); Mean Platelet Volume 9.3 fL (9.5-12.2); Monocytes # (A) 0.41 X 10*3/uL (0.20-1.00); Monocytes % (A) 7.4 %; Neutrophils # (A) 2.63 X 10*3/uL (1.80-7.70); Neutrophils % (A) 47.2 %; Platelet Count 196 X 10*3/uL (140-440); RBC 4.95 X 10*6/uL (4.40-5.60); RDW 12.4 % (11.5-14.5); WBC 5.57 X 10*3/uL (4.50-10.00)
[2020-10-04 12:44] LABS: African American GFR (CKD) 79.2 (60.0-200.0); Albumin/Globulin Ratio 3.13 (1.60-3.17); Anion Gap 9.3 mmol/L (4.00-12.00); Calcium 9.3 mg/dL (8.7-10.3); Carbon Dioxide 26.7 mmol/L (21.6-31.8); Chol/HDL Ratio 2.34; Globulin 1.6 g/dL (1.6-3.3); LDL Cholesterol,Calculated 71.4 mg/dL (0.0-131.0); Non-African American GFR(CKD) 68.3 (60.0-200.0); Potassium 4.9 mmol/L (3.5-5.5); Prostate Specific Antigen 1.8 ng/mL (0.0-6.5); Total Bilirubin 1.3 mg/dL (0.3-1.2); Total Protein 6.6 g/dL (6.2-8.2); VLDL Calculation 15.6 mg/dL (5.00-40.00)
[2020-10-04 18:26] LABS: Hemoglobin A1C 5.6 % (4.0-6.0)
[2020-10-04 18:30] LABS: Appearance,Urine Cloudy (Clear); Bacteria,Urine None Seen /HPF (None Seen); Bilirubin,Urine Negative (Negative); Blood,Urine Large (Negative); Calcium Oxalate Crystals,Urine Present (None Seen); Color,Urine Yellow (Yellow); Glucose,Urine (UA) Negative (Negative); Ketones,Urine Negative (Negative); Leukocyte Esterase,Urine Negative (Negative); Nitrite,Urine Negative (Negative); Protein,Urine Negative (Negative); Specific Gravity,Urine 1.016 (1.001-1.030)
== END | disposition home or self-care (01) ==
LOC: LABWHC1 07:23
PROVIDERS: ATTEND Family Medicine
DX: I10 Essential (primary) hypertension (principal); N39.0 Urinary tract infection, site not specified; Z79.899 Other long term (current) drug therapy; R97.20 Elevated prostate specific antigen [PSA]
CPT/HCPCS: 36415; 80053; 80061; 81001; 83036; 84153; 84443; 85025

== ENCOUNTER → 2020-11-13 | Outpatient (CLI) | payer MEDICARE ==
--- NOTE | 2020-11-13 13:10 | US ---
EXAMINATION TYPE: US kidneys/renal and bladder DATE OF EXAM: 11/13/2020 COMPARISON: NONE CLINICAL HISTORY: R31.9 hematuria. EXAM MEASUREMENTS: Right Kidney: 10.4 x 4.9 x 5.5 cm Left Kidney: 10.6 x 5.2 x 5.7 cm Right Kidney: mild hydronephrosis Left Kidney: somewhat lobular contour. Bladder: not well distended Bilateral Jets seen: No Incidental note is made of prominent prostate gland. IMPRESSION: 1. Mild right hydronephrosis. 2. Prostate hypertrophy
== END | disposition home or self-care (01) ==
LOC: RADUSWWP 12:42
PROVIDERS: ATTEND Family Medicine
DX: N13.30 Unspecified hydronephrosis (principal); N40.0 Benign prostatic hyperplasia without lower urinary tract symptoms
CPT/HCPCS: 76770

== ENCOUNTER → 2021-08-05 | Outpatient (CLI) | payer MEDICARE ==
[2021-08-05 12:16] LABS: African American GFR (CKD) 84.9 (60.0-200.0); Blood Urea Nitrogen 11.3 mg/dL (9.0-27.0); Chloride 100 mmol/L (96-109); Chol/HDL Ratio 2.47 Ratio; Non-African American GFR(CKD) 73.2 (60.0-200.0); Potassium 4.6 mmol/L (3.5-5.5); Sodium 138 mmol/L (135-145); VLDL Calculation 15.06 mg/dL (5.00-40.00)
== END | disposition home or self-care (01) ==
LOC: LABWHC1 08:17
PROVIDERS: ATTEND Family Medicine
DX: I10 Essential (primary) hypertension (principal); Z79.899 Other long term (current) drug therapy; R97.20 Elevated prostate specific antigen [PSA]
CPT/HCPCS: 36415; 80051; 80061; 82565; 84153; 84520

== ENCOUNTER → 2022-04-14 | Outpatient (CLI) | payer MEDICARE ==
[2022-04-14 15:07] LABS: African American GFR (CKD) 90.6 (60.0-200.0); Carbon Dioxide 26.6 mmol/L (20.0-27.5); Non-African American GFR(CKD) 78.2 (60.0-200.0); Potassium 4.4 mmol/L (3.5-5.5)
== END | disposition home or self-care (01) ==
LOC: LABWHC1 09:39
PROVIDERS: ATTEND Family Medicine
DX: I10 Essential (primary) hypertension (principal); Z79.899 Other long term (current) drug therapy
CPT/HCPCS: 36415; 80051; 82565; 84520

== ENCOUNTER → 2022-05-26 | Outpatient (CLI) | payer MEDICARE ==
[2022-05-26 10:36] LABS: ALT 22 U/L (10-49); AST 24 U/L (14-35); Chol/HDL Ratio 2.35 Ratio; LDL Cholesterol,Calculated 68.5 mg/dL (0.0-131.0)
== END | disposition home or self-care (01) ==
LOC: LABWHC1 07:47
PROVIDERS: ATTEND Internal Medicine Cardiovascular Disease
DX: E78.2 Mixed hyperlipidemia (principal)
CPT/HCPCS: 36415; 80061; 84450; 84460

== ENCOUNTER → 2022-12-01 | Outpatient (CLI) | payer MEDICARE ==
[2022-12-01 16:38] LABS: ALT 19 U/L (10-49); AST 22 U/L (14-35); African American GFR (CKD) 77.5 (60.0-200.0); Albumin 4.7 g/dL (3.8-4.9); Albumin/Globulin Ratio 2.24 (1.60-3.17); Alkaline Phosphatase 92 U/L (41-126); Blood Urea Nitrogen 15.3 mg/dL (9.0-27.0); Calcium 9.8 mg/dL (8.7-10.3); Carbon Dioxide 26.3 mmol/L (20.0-27.5); Chloride 105 mmol/L (96-109); Chol/HDL Ratio 2.51 Ratio; Globulin 2.1 g/dL (1.6-3.3); Glucose 107 mg/dL (70-110); LDL Cholesterol,Calculated 87.2 mg/dL (0.0-131.0); Non-African American GFR(CKD) 66.9 (60.0-200.0); Potassium 4.9 mmol/L (3.5-5.5); Sodium 143 mmol/L (135-145); Total Protein 6.8 g/dL (6.2-8.2); VLDL Calculation 12.02 mg/dL (5.00-40.00)
[2022-12-01 16:42] LABS: Basophils # (A) 0.03 X 10*3/uL (0.00-0.10); Basophils % (A) 0.5 %; Eosinophils # (A) 0.22 X 10*3/uL (0.04-0.35); Eosinophils % (A) 3.8 %; HCT 45.1 % (39.6-50.0); HGB 15.2 g/dL (13.0-17.0); Immature Grans, Automated 0.2 %; Lymphocytes # (A) 1.87 X 10*3/uL (0.90-5.00); Lymphocytes % (A) 32.7 %; MCH 32.1 pg (27.0-32.0); MCHC 33.7 g/dL (32.0-37.0); MCV 95.1 fL (80.0-97.0); Mean Platelet Volume 9.3 fL (9.5-12.2); Monocytes # (A) 0.48 X 10*3/uL (0.20-1.00); Monocytes % (A) 8.4 %; NRBC Per 100 WBC 0 /100 WBCS (0.0-0.0); Neutrophils # (A) 3.11 X 10*3/uL (1.80-7.70); Neutrophils % (A) 54.4 %; Platelet Count 195 X 10*3/uL (140-440); RBC 4.74 X 10*6/uL (4.40-5.60); RDW 12.6 % (11.5-14.5); WBC 5.72 X 10*3/uL (4.50-10.00)
== END | disposition home or self-care (01) ==
LOC: LABWHC1 07:42
PROVIDERS: ATTEND Family Medicine
DX: I10 Essential (primary) hypertension (principal); Z79.899 Other long term (current) drug therapy
CPT/HCPCS: 36415; 80053; 80061; 83036; 84443; 85025

== ENCOUNTER → 2023-05-25 | Outpatient (CLI) | payer MEDICARE ==
[2023-05-25 15:25] LABS: ALT 37 U/L (10-49); AST 26 U/L (14-35); Chol/HDL Ratio 2.38 Ratio; LDL Cholesterol,Calculated 69.1 mg/dL (0.0-131.0); VLDL Calculation 15.56 mg/dL (5.00-40.00)
== END | disposition home or self-care (01) ==
LOC: LABWHC1 08:13
PROVIDERS: ATTEND Internal Medicine Cardiovascular Disease
DX: E78.2 Mixed hyperlipidemia (principal)
CPT/HCPCS: 36415; 80061; 84450; 84460

== ENCOUNTER → 2024-01-25 | Outpatient (CLI) | payer MEDICARE ==
[2024-01-25 14:58] LABS: HCT 35.9 % (39.6-50.0); HGB 11.2 g/dL (13.0-17.0); MCH 31.5 pg (27.0-32.0); MCHC 31.2 g/dL (32.0-37.0); MCV 101.1 FL (80.0-97.0); Mean Platelet Volume 10.3 FL (9.5-12.2); NRBC Per 100 WBC 0 X 10*3/uL (0.00-0.01); Platelet Count 210 X 10*3/uL (140-440); RBC 3.55 X 10*6/uL (4.40-5.60); RDW 13.8 % (11.5-14.5); WBC 3.83 X 10*3/uL (4.50-10.00)
[2024-01-25 14:59] LABS: Basophils # (A) 0.02 X 10*3/uL (0.00-0.10); Basophils % (A) 0.5 %; Eosinophils # (A) 0.07 X 10*3/uL (0.04-0.35); Eosinophils % (A) 1.8 %; Lymphocytes # (A) 0.48 X 10*3/uL (0.90-5.00); Lymphocytes % (A) 12.5 %; Monocytes # (A) 0.28 X 10*3/uL (0.20-1.00); Monocytes % (A) 7.3 %; Neutrophils # (A) 2.97 X 10*3/uL (1.80-7.70); Neutrophils % (A) 77.6 %
[2024-01-25 15:24] LABS: NT-Pro-B-Type Natriuretic Pept 335 pg/mL (0-450)
[2024-01-25 15:43] LABS: ALT 21 U/L (10-49); AST 23 U/L (14-35); Albumin 4.5 g/dL (3.8-4.9); Albumin/Globulin Ratio 2.81 Ratio (1.60-3.17); Alkaline Phosphatase 55 U/L (41-126); Blood Urea Nitrogen 18.5 mg/dL (9.0-27.0); Calcium 9.3 mg/dL (8.7-10.3); Carbon Dioxide 23.8 mmol/L (21.6-31.8); Chloride 105 mmol/L (96-109); Chol/HDL Ratio 2.06 Ratio; Globulin 1.6 g/dL (1.6-3.3); Glucose 103 mg/dL (70-110); Iron 81 UG/DL (65-175); LDL Cholesterol,Calculated 65.6 mg/dL (0.0-131.0); Potassium 4.6 mmol/L (3.5-5.5); Sodium 141 mmol/L (135-145); Total Bilirubin 0.8 mg/dL (0.3-1.2); Total Protein 6.1 g/dL (6.2-8.2)
== END | disposition home or self-care (01) ==
LOC: LABWHC1 08:37
PROVIDERS: ATTEND Family Medicine
DX: I50.9 Heart failure, unspecified (principal); E55.9 Vitamin D deficiency, unspecified; E11.9 Type 2 diabetes mellitus without complications; E61.1 Iron deficiency
CPT/HCPCS: 36415; 80053; 80061; 82306; 83036; 83540; 83880; 84443; 85025

== ENCOUNTER 2024-07-03 15:04 | Inpatient (IN) | payer MEDICARE ==
--- NOTE | 2024-07-03 15:28 | ED ---
General Adult HPI - General Source: patient, family, RN notes reviewed Mode of arrival: wheelchair Limitations: altered mental status <Mary Wise - Last Filed: 07/03/24 15:27> - General Source: patient, family, RN notes reviewed Mode of arrival: wheelchair Limitations: altered mental status <Alfredo Holman - Last Filed: 07/03/24 17:33> - General Chief complaint: Shortness of Breath Stated complaint: cough,congestion Time Seen by Provider: 07/03/24 15:20 - History of Present Illness Initial comments: Quick note88 male presenting to the emergency department with referral from primary care provider's office with complaint of unresolved pneumonia. Over the past 2 days patient has been on antibiotics with minimal relief in symptoms. Has been having a worsening productive cough with mucus. Additionally, patient's lower extremity edema has worsened over the past few days. (Mary Wise) Patient is an 88-year-old male present to the emergency department with concerns with difficulty breathing. Symptoms have been present for close to a month. Patient does have cough with thick yellow mucus. Patient has a hard time sleeping and will sometimes cough for hours at nighttime. Patient does feel short of breath. Patient does have some leg edema, no calf pain. No fevers. Patient did go to his doctor's office and advised to come to the hospital. Patient does have history of COPD with similar symptoms previously. (Alfredo Holman) - Related Data Home Medications Medication Instructions Recorded Confirmed Aspirin EC [Ecotrin] 325 mg PO DAILY 09/19/16 02/10/17 Glucosam/Cesar-Msm1/C/Rishabh/Bosw 1 tab PO DAILY 09/19/16 02/10/17 [Glucosamine-Chondroitin Tablet] Meclizine HCl 12.5 mg PO TID PRN 09/19/16 02/10/17 Ramipril 10 mg PO BID 09/19/16 02/10/17 Rosuvastatin Calcium [Crestor] 10 mg PO HS 09/19/16 02/10/17 Vit C/E/Zinc/Lutein/Zeaxanthin 1 tab PO DAILY 09/19/16 02/10/17 [Ocuvite Eye Health Gummies] Allergies Allergy/AdvReac Type Severity Reaction Status Date / Time No Known Allergies Allergy Verified 07/03/24 15:09 Review of Systems ROS Other: All systems not noted in ROS Statement are negative. <Mary Wise - Last Filed: 07/03/24 15:27> ROS Other: All systems not noted in ROS Statement are negative. Constitutional: Denies: fever Eyes: Denies: eye pain ENT: Denies: ear pain Respiratory: Reports: as per HPI, cough, dyspnea Cardiovascular: Denies: chest pain Endocrine: Reports: fatigue Gastrointestinal: Denies: abdominal pain <Alfredo Holman - Last Filed: 07/03/24 17:33> ROS Statement: Those systems with pertinent positive or pertinent negative responses have been documented in the HPI. Past Medical History Past Medical History: GERD/Reflux, Hearing Disorder / Deafness, Hyperlipidemia, Hypertension, Osteoarthritis (OA), Syncope Additional Past Medical History / Comment(s): Leaky heart valve seasonal allergies History of Any Multi-Drug Resistant Organisms: None Reported Past Surgical History: Adenoidectomy, Appendectomy, Coronary Bypass/CABG, Ear Surgery, Tonsillectomy Additional Past Surgical History / Comment(s): CABG X5 vessel in 1997, mastoid surgery left ear in 1939 Past Anesthesia/Blood Transfusion Reactions: No Reported Reaction, Motion Sickness Past Psychological History: No Psychological Hx Reported Past Alcohol Use History: Daily Past Drug Use History: None Reported - Past Family History Mother Family Medical History: Coronary Artery Disease (CAD), CVA/TIA Father Family Medical History: Congestive Heart Failure (CHF) Sister(s) Family Medical History: CVA/TIA Brother(s) Family Medical History: Cancer Additional Family Medical History / Comment(s): from lung CA <Mary Wise - Last Filed: 07/03/24 15:27> General Exam Limitations: altered mental status <Mary Wise - Last Filed: 07/03/24 15:27> Limitations: no limitations General appearance: alert, in no apparent distress Head exam: Present: normocephalic Neck exam: Present: normal inspection Respiratory exam: Present: wheezes, decreased breath sounds Cardiovascular Exam: Present: regular rate, normal rhythm GI/Abdominal exam: Present: soft. Absent: tenderness Extremities exam: Present: pedal edema. Absent: calf tenderness Neurological exam: Present: alert Psychiatric exam: Present: normal affect, normal mood Skin exam: Present: normal color <Alfredo Holman - Last Filed: 07/03/24 17:33> - General Exam Comments Initial Comments: Visual Physical Exam Vital signs reviewed General: Well-appearing, nontoxic, no acute distress. Head: Normocephalic, atraumatic Eyes: PERRLA, EOMI ENT: Airway patent Chest: Nonlabored breathing Skin: No visual rash, normal skin tone Neuro: Alert and oriented 3 Musculoskeletal: No gross abnormalities (Mary Wise) Course Vital Signs 07/03/24 07/03/24 15:05 17:02 Temperature 98.2 F 98.1 F Pulse Rate 72 73 Respiratory 16 23 Rate Blood Pressure 164/91 153/71 O2 Sat by Pulse 97 94 L Oximetry EKG Findings - EKG Results: EKG: interpreted by ERMD (septal Q waves), sinus rhythm, normal axis, normal ST/T <Alfredo Holman - Last Filed: 07/03/24 17:33> Medical Decision Making <Mary Wise - Last Filed: 07/03/24 15:27> - Lab Data Result diagrams: 07/03/24 15:55 07/03/24 15:55 <Alfredo Holman - Last Filed: 07/03/24 17:33> - Medical Decision Making I completed the quick note portion of this chart signed Mary Wise PA-C (Mary Wise) Was pt. sent in by a medical professional or institution ([facility]WALDO Paz, BUSINESS DIVISION CHAIR, urgent care, hospital, or correction...) When possible be specific @ -Patient was sent in by Dr. Borden's office Did you speak to anyone other than the patient for history (EMS, parent, family, police, friend...)? What history was obtained from this source @ -Family is present helps provide history as patient has dementia and is somewhat a poor historian. This includes onset of symptoms and symptoms Did you review nursing and triage notes (agree or disagree)? Why? @ -I reviewed and agree with nursing and triage notes Were old charts reviewed (outside hosp., previous admission, EMS record, old EKG, old radiological studies, urgent care reports/EKG's, correction records)? Report findings @ -No old charts were reviewed Differential Diagnosis (chest pain, altered mental status, abdominal pain women, abdominal pain men, vaginal bleeding, weakness, fever, dyspnea, syncope, headache, dizziness, GI bleed, back pain, seizure, CVA, palpatations, mental health, musculoskeletal)? @ -Differential Dyspnea: Coronary syndrome, arrhythmia, tamponade, asthma, COPD, pulmonary embolism, pneumonia, pneumothorax, pulmonary effusion, anaphylaxis, diabetic ketoacidosis, flailed chest, pulmonary contusion, diaphragmatic rupture, anemia, neuromuscular, this is not meant to be an all-inclusive list. EKG interpreted by me (3pts min.). @ -As above X-rays interpreted by me (1pt min.). @ -Chest x-ray does not reveal acute abnormality CT interpreted by me (1pt min.). @ -None done U/S interpreted by me (1pt. min.). @ -None done What testing was considered but not performed or refused? (CT, X-rays, U/S, lab s)? Why? @ -Consider D-dimer and this will be added What meds were considered but not given or refused? Why? @ -None Did you discuss the management of the patient with other professionals (professionals i.e. , PA, BUSINESS DIVISION CHAIR, lab, RT, psych nurse, social services aide, aircraft navigator, teacher, aoc director combat operations officer, director of casework services)? Give summary @ -Case discussed with Dr. Borden who is currently with this patient and wou ld like him to be admitted. He is aware of adding D-dimer. Was smoking cessation discussed for >3mins.? @ -No Was critical care preformed (if so, how long)? @ -No Were there social determinants of health that impacted care today? How? (Homelessness, low income, unemployed, alcoholism, drug addiction, transportation, low edu. Level, literacy, decrease access to med. care, custodial, rehab)? @ -No Was there de-escalation of care discussed even if they declined (Discuss DNR or withdrawal of care, Hospice)? DNR status @ -No What co-morbidities impacted this encounter? (DM, HTN, Smoking, COPD, CAD, Cancer, CVA, ARF, Chemo, Hep., AIDS, mental health diagnosis, sleep apnea, morbid obesity)? @ -History of COPD Was patient admitted / discharged? Hospital course, mention meds given and route, prescriptions, significant lab abnormalities, going to OR and other pertinent info. @ -Patient presents with progressive cough and dyspnea over the past month. Patient sent by primary care physician for admission. Patient will be admitted with IV antibiotics. Admission orders placed Undiagnosed new problem with uncertain prognosis? @ -No Drug Therapy requiring intensive monitoring for toxicity (Heparin, Nitro, Insulin, Cardizem)? @ -No Were any procedures done? @ -No Diagnosis/symptom? @ -COPD Acute, or Chronic, or Acute on Chronic? @ -Acute Uncomplicated (without systemic symptoms) or Complicated (systemic symptoms)? @ -Default Side effects of treatment? @ -No Exacerbation, Progression, or Severe Exacerbation? @ -Exacerbation Poses a threat to life or bodily function? How? (Chest pain, USA, PA, pneumonia, PE, COPD, DKA, ARF, appy, cholecystitis, CVA, Diverticulitis, Homicidal, Dennis icidal, threat to staff... and all critical care pts) @ -2 pulmonary function (Alfredo Holman) - Lab Data Lab Results 07/03/24 07/03/24 07/03/24 Range/Units 15:55 15:55 15:55 WBC 7.2 (3.8-10.6) k/uL RBC 4.52 (4.30-5.90) m/uL Hgb 14.3 (13.0-17.5) gm/dL Hct 43.1 (39.0-53.0) % MCV 95.4 (80.0-100.0) fL MCH 31.7 (25.0-35.0) pg MCHC 33.2 (31.0-37.0) g/dL RDW 12.5 (11.5-15.5) % Plt Count 200 (150-450) k/uL MPV 6.5 Neutrophils % 60 % Lymphocytes % 25 % Monocytes % 6 % Eosinophils % 7 % Basophils % 0 % Neutrophils # 4.3 (1.3-7.7) k/uL Lymphocytes # 1.8 (1.0-4.8) k/uL Monocytes # 0.4 (0-1.0) k/uL Eosinophils # 0.5 (0-0.7) k/uL Basophils # 0.0 (0-0.2) k/uL Sodium 129 L (137-145) mmol/L Potassium 4.5 (3.5-5.1) mmol/L Chloride 95 L (98-107) mmol/L Carbon Dioxide 24 (22-30) mmol/L Anion Gap 10 mmol/L BUN 22 H (9-20) mg/dL Creatinine 0.87 (0.66-1.25) mg/dL Est GFR (CKD-EPI)AfAm 89 (>60 ml/min/1.73 sqM) Est GFR (CKD-EPI)NonAf 77 (>60 ml/min/1.73 sqM) Glucose 98 (74-99) mg/dL Plasma Lactic Acid Chandana 1.3 (0.7-2.0) mmol/L Calcium 9.2 (8.4-10.2) mg/dL Magnesium 2.0 (1.6-2.3) mg/dL Total Bilirubin 0.8 (0.2-1.3) mg/dL AST 29 (17-59) U/L ALT 22 (4-49) U/L Alkaline Phosphatase 72 (38-126) U/L NT-Pro-B Natriuret Pep 272 pg/mL Total Protein 6.8 (6.3-8.2) g/dL Albumin 4.5 (3.5-5.0) g/dL Influenza Type A (PCR) (Not Detectd) Influenza Type B (PCR) (Not Detectd) RSV (PCR) (Not Detectd) SARS-CoV-2 (PCR) (Not Detectd) 07/03/24 Range/Units 15:55 WBC (3.8-10.6) k/uL RBC (4.30-5.90) m/uL Hgb (13.0-17.5) gm/dL Hct (39.0-53.0) % MCV (80.0-100.0) fL MCH (25.0-35.0) pg MCHC (31.0-37.0) g/dL RDW (11.5-15.5) % Plt Count (150-450) k/uL MPV Neutrophils % % Lymphocytes % % Monocytes % % Eosinophils % % Basophils % % Neutrophils # (1.3-7.7) k/uL Lymphocytes # (1.0-4.8) k/uL Monocytes # (0-1.0) k/uL Eosinophils # (0-0.7) k/uL Basophils # (0-0.2) k/uL Sodium (137-145) mmol/L Potassium (3.5-5.1) mmol/L Chloride (98-107) mmol/L Carbon Dioxide (22-30) mmol/L Anion Gap mmol/L BUN (9-20) mg/dL Creatinine (0.66-1.25) mg/dL Est GFR (CKD-EPI)AfAm (>60 ml/min/1.73 sqM) Est GFR (CKD-EPI)NonAf (>60 ml/min/1.73 sqM) Glucose (74-99) mg/dL Plasma Lactic Acid Chandana (0.7-2.0) mmol/L Calcium (8.4-10.2) mg/dL Magnesium (1.6-2.3) mg/dL Total Bilirubin (0.2-1.3) mg/dL AST (17-59) U/L ALT (4-49) U/L Alkaline Phosphatase (38-126) U/L NT-Pro-B Natriuret Pep pg/mL Total Protein (6.3-8.2) g/dL Albumin (3.5-5.0) g/dL Influenza Type A (PCR) Not Detected (Not Detectd) Influenza Type B (PCR) Not Detected (Not Detectd) RSV (PCR) Not Detected (Not Detectd) SARS-CoV-2 (PCR) Not Detected (Not Detectd) Disposition <Mary Wise - Last Filed: 07/03/24 15:27> Is patient prescribed a controlled substance at d/c from ED?: No Time of Disposition: 17:33 <Alfredo Holman - Last Filed: 07/03/24 17:33> Clinical Impression: Acute exacerbation of chronic obstructive pulmonary disease Disposition: ADMITTED IP TO THIS HOSP Referrals: Preet Borden MD [Primary Care Provider] - 1-2 days
--- NOTE | 2024-07-03 15:48 | XR ---
2 view chest. HISTORY: Cough and fevers. COMPARISON: 09/19/2016. TECHNIQUE: PA and lateral views of the chest are obtained. FINDINGS: Prior CABG surgery. Suboptimal inspiration but no airspace consolidation or interstitial opacity. There is no pleural effusion or pneumothorax. The heart and pulmonary vasculature are normal for the technique. The osseous structures are intact. IMPRESSION: Limited by suboptimal inspiration but no evidence of acute cardiopulmonary disease. [facility], Workstation: [id number] 07/03/2024 3:46 PM
[2024-07-03 16:04] LABS: Basophils % (A) 0 %; Eosinophils # (A) 0.5 k/uL (0-0.7); Eosinophils % (A) 7 %; HCT 43.1 % (39.0-53.0); HGB 14.3 gm/dL (13.0-17.5); Lymphocytes # (A) 1.8 k/uL (1.0-4.8); Lymphocytes % (A) 25 %; MCH 31.7 pg (25.0-35.0); MCHC 33.2 g/dL (31.0-37.0); MCV 95.4 fL (80.0-100.0); Mean Platelet Volume 6.5; Monocytes # (A) 0.4 k/uL (0-1.0); Monocytes % (A) 6 %; Neutrophils # (A) 4.3 k/uL (1.3-7.7); Neutrophils % (A) 60 %; Platelet Count 200 k/uL (150-450); RBC 4.52 m/uL (4.30-5.90); RDW 12.5 % (11.5-15.5); WBC 7.2 k/uL (3.8-10.6)
[2024-07-03 16:15] LABS: ALT 22 U/L (4-49); AST 29 U/L (17-59); African American GFR (CKD) 89 (>60 ml/min/1.73 sqM); Albumin 4.5 g/dL (3.5-5.0); Alkaline Phosphatase 72 U/L (38-126); Anion Gap 10 mmol/L; Blood Urea Nitrogen 22 mg/dL (9-20); Calcium 9.2 mg/dL (8.4-10.2); Carbon Dioxide 24 mmol/L (22-30); Chloride 95 mmol/L (98-107); Glucose 98 mg/dL (74-99); Non-African American GFR(CKD) 77 (>60 ml/min/1.73 sqM); Potassium 4.5 mmol/L (3.5-5.1); Sodium 129 mmol/L (137-145); Total Bilirubin 0.8 mg/dL (0.2-1.3); Total Protein 6.8 g/dL (6.3-8.2)
[2024-07-03 16:23] LABS: NT-Pro-B-Type Natriuretic Pept 272 pg/mL
[2024-07-03] MEDS ORDERED: NALOXONE 0.4 MG/ML 1 ML VIAL IVP PRN (17:34)
[2024-07-03] MEDS ORDERED: IPRATROPIUM-ALBUTEROL 3 ML NEB INHALATION PRN (17:34)
[2024-07-03] MEDS: methylPREDNISolone SOD SUCCI 125 MG/2 ML VIAL IV STA (18:07)
[2024-07-03] MEDS: AZITHROMYCIN 500 MG in SODIUM CHLORIDE 0.9% 250 ML IVPB SCH (18:09)
[2024-07-03] MEDS: IPRATROPIUM-ALBUTEROL 3 ML NEB INHALATION SCH (19:31)
--- NOTE | 2024-07-03 22:25 | CT ---
EXAMINATION TYPE: CT chest wo con DATE OF EXAM: 07/03/2024 7:06 PM COMPARISON: Same day chest radiograph. CLINICAL INDICATION: Male, 88 years old with history of cap; PHH, pneumonia TECHNIQUE: Multiple axial images were obtained through the chest. Sagittal and coronal reformats were created for review. MIP was performed on a separate workstation. CT DLP: 377.6 mGycm, Automated exposure control for dose reduction was used. FINDINGS: Heart size within normal limits. No pericardial effusion. Median sternotomy wires and postsurgical ch anges suggestive of previous CABG. Severe calcifications of the [place] coronary arteries. Mildly prom inent precarinal mediastinal lymph node measuring 10 mm in short access. Evaluation for hilar lymphad enopathy limited due to lack of IV contrast. No pathologic axillary lymphadenopathy. Calcified granul fan in the right middle lobe measuring 7 mm. Otherwise, no suspicious pulmonary nodule or pulmonary m ass. Linear scarring/atelectasis in the lower lobes. Otherwise, no acute focal consolidation. No pleural e ffusion or pneumothorax. Osseous structures demineralized. Severe kyphotic curvature of the cervicothoracic spine. Multilevel thoracic spine degenerative changes. Partially visualized upper abdomen demonstrates no acute abnorma lities. Cholelithiasis. Small hiatal hernia. IMPRESSION: No acute abnormality in the chest. Specifically, no focal consolidations to suggest pneumonia. Follow up recommendations for incidental pulmonary nodules, if there are any, are per [employer] [employer] or [employer]. https://radiopaedia.org/articles/gerqegyhct-zgdaxly-hfgckyhwy-[email or web address]-[email or web address]?lang=us [facility], , 07/03/2024 10:23 PM
[2024-07-04] MEDS: methylPREDNISolone SOD SUCCI 125 MG/2 ML VIAL IV SCH (00:53)
[2024-07-04] MEDS: ASPIRIN 325 MG TAB PO SCH (09:52)
[2024-07-04] MEDS: lisinopriL 20 MG TAB PO SCH (09:52)
[2024-07-04] MEDS: DOCUSATE 100 MG CAP PO SCH (09:52)
[2024-07-04] MEDS: TAMSULOSIN 0.4 MG CAP.ER.24H PO SCH (09:52)
[2024-07-04] MEDS: BUMETANIDE 0.5 MG TABLET PO SCH (09:52)
[2024-07-04] MEDS: VIT A,C & E-LUTEIN-MINERALS 1 EACH TAB PO SCH (09:52)
[2024-07-04] MEDS: amLODIPine 5 MG TAB PO SCH (09:53)
[2024-07-04] MEDS: POTASSIUM CHLORIDE ER 10 MEQ TAB.ER.PRT PO SCH (09:53)
[2024-07-04 11:54] LABS: Glucose,Whole Blood 140 mg/dL (70-110)
--- NOTE | 2024-07-04 19:11 | CT ---
EXAMINATION TYPE: CT angio chest DATE OF EXAM: 07/04/2024 6:25 PM COMPARISON: 07/03/2024 CLINICAL INDICATION: Male, 88 years old with history of high d-dimer; High D-dimer. TECHNIQUE/CONTRAST: CTA scan of the thorax is performed with IV Contrast, patient injected with 100 ml mL of Isovue 370, MIP images are created and reviewed these are created on a separate workstation.. CT DLP: 332.7 mGycm, Automated exposure control for dose reduction was used. FINDINGS: Lungs/Pleura: Elevated diaphragm with associated atelectasis bilaterally left greater than right rega rding to the atelectasis. No evidence of focal consolidation, pleural effusion or pneumothorax. Airway: Large airways are patent. Heart: Heart is within normal limits for size. Vasculature: There is no evidence for a filling defect within the pulmonary vasculature to suggest ac [place] pulmonary embolism. The pulmonary artery is of normal size. Moderate to severe atherosclerosis of the arterial vasculature. Mediastinum: No gross evidence of adenopathy. Musculoskeletal: No acute osseous abnormalities, sternotomy wires are present. Soft Tissues/lymph nodes: Unremarkable. Lower neck: No significant findings. Upper Abdomen: Cholelithiasis. IMPRESSION: 1. No evidence of pulmonary embolism. 2. Elevated diaphragms with atelectasis bilaterally. Follow up recommendations for incidental pulmonary nodules, if there are any, are per [employer] [employer] or [employer]. https://radiopaedia.org/articles/ovfjxojlps-kuizanx-ourikbqmp-bzpuxg-[email or web address]-[email or web address]?lang=us [facility], , 07/04/2024 7:09 PM
--- NOTE | 2024-07-04 19:54 | US ---
EXAMINATION TYPE: US venous doppler duplex LE BI DATE OF EXAM: 07/04/2024 7:41 PM COMPARISON: NONE CLINICAL INDICATION: Male, 88 years old with history of dvt; Patients daughter states previous leg sw elling that has since went down. No hx of DVT as she knows, unsure if on thinners., TECHNIQUE: The lower extremity deep venous system is examined utilizing real time linear array sonog ninoska with graded compression, color doppler sonography, and spectral doppler. SIDE PERFORMED: Bilateral FINDINGS: VESSELS IMAGED: Common Femoral Vein Deep Femoral Vein Greater Saphenous Vein * Femoral Vein Popliteal Vein Small Saphenous Vein * Proximal Calf Veins (* superficial vessels) slightly limited due to poor patient mobility Right Leg: Negative for DVT, Color Doppler imaging shows patency of the vessels. Spectral waveforms are within normal limits. Left Leg: Negative for DVT, Color Doppler imaging shows patency of the vessels. Spectral waveforms a re within normal limits. IMPRESSION: No ultrasound evidence for deep venous thrombosis. [facility], , 07/04/2024 7:51 PM
[2024-07-04] MEDS: BUMETANIDE 0.25 MG/ML 4 ML VIAL IVP STA (21:59)
[2024-07-04] MEDS: ACETAMINOPHEN TAB 325 MG TAB PO PRN (21:59)
[2024-07-04] MEDS: ATORVASTATIN 20 MG TAB PO SCH (21:59)
--- NOTE | 2024-07-05 12:05 | P.CRDCN ---
History of Present Illness History of present illness: HISTORY OF PRESENT ILLNESS: This is a 88-year-old male with a past medical history significant for coronary artery disease with previous CABG, valvular heart disease, hypertension, hyperl ipidemia, Parkinson's, and dementia. Patient follows in the office with Dr. Herbert. We have been asked to see the patient in consultation for congestive heart failure. Patient examined at the bedside. Patient's family is providing majority of the HPI as the patient is lethargic and unable to give any history. According to the patient's family member over the past week he has become more confused and weak. He also has been having hallucinations at home. Family states that a month ago he was doing well and was up walking with a walker and eating well. DIAGNOSTICS: - EKG not available at the time of dictation - Chest xray limited by suboptimal inspiration but no evidence of acute cardiopulmonary process - Chest CTA: Negative for pulmonary embolism - Laboratory data: WBC 7.2. Hemoglobin 14.3. Platelet count 200. Sodium 129. Potassium 4.5. BUN 22. Creatinine 0.87. proBNP 272. - Current home cardiac medications include aspirin 325 mg daily, ramipril 10 mg twice a day, rosuvastatin 10 mg at night, amlodipine 5 mg twice a day, Bumex 0.5 mg daily - Most recent echocardiogram obtained in October 2023 revealed ejection fraction 55%, moderate concentric LVH, moderate to severe aortic regurgitation, mild to moderate mitral regurgitation, mild tricuspid regurgitation - Cardiac catheterization history: 1998 revealing three-vessel disease REVIEW OF SYSTEMS: At the time of my exam: Unable to obtain thorough review of systems secondary to altered mental status PHYSICAL EXAM: VITAL SIGNS: Reviewed. GENERAL: Well-developed in no acute distress. HEENT: Head is normocephalic. Pupils are equal, round. Sclerae anicteric. Mucous membranes of the mouth are moist. Neck supple. No JVD or thyromegaly LUNGS: Respirations even and unlabored. Lungs essentially clear to auscultation bilaterally, diminished. HEART: Regular rate and rhythm. S1 and S2 heard. Systolic murmur noted ABDOMEN: Soft. Nondistended. Nontender. EXTREMITIES: Normal range of motion. No clubbing or cyanosis. Peripheral pulses intact. No lower extremity edema NEUROLOGIC: Lethargic ASSESSMENT: Altered mental status/metabolic encephalopathy Chronic heart failure with preserved EF, currently euvolemic without acute exacerbation Coronary artery disease with previous CABG Valvular heart disease moderate to severe aortic regurgitation, mild to moderate mitral regurgitation, mild tricuspid regurgitation Hypertension Hyperlipidemia History of Parkinson's disease Dementia PLAN: Obtain EKG. Please scan into [facility] when completed. No need to repeat echocardiogram Patient is not in acute CHF and does not require IV diuretics Resume home cardiac medications Continue with medical management for valvular heart disease No further recommendations from a cardiac standpoint We will sign off. Please reconsult if needed. Nurse practitioner note has been reviewed by physician. Signing provider agrees with the documented findings, assessment, and plan of care documented by CORE PILER as a scribe. Past Medical History Past Medical History: GERD/Reflux, Hearing Disorder / Deafness, Hyperlipidemia, Hypertension, Osteoarthritis (OA), Syncope Additional Past Medical History / Comment(s): Leaky heart valve (open heart in 1997.), seasonal allergies. History of Any Multi-Drug Resistant Organisms: None Reported Past Surgical History: Adenoidectomy, Appendectomy, Coronary Bypass/CABG, Ear Surgery, Tonsillectomy Additional Past Surgical History / Comment(s): CABG X5 vessel in 1997, mastoid surgery left ear in 1939. Past Anesthesia/Blood Transfusion Reactions: No Reported Reaction, Motion Sickness Past Psychological History: No Psychological Hx Reported Smoking Status: Former smoker Past Alcohol Use History: Daily Additional Past Alcohol Use History / Comment(s): QUIT IN THE Past Drug Use History: None Reported - Past Family History Mother Family Medical History: Coronary Artery Disease (CAD), CVA/TIA Father Family Medical History: Congestive Heart Failure (CHF) Sister(s) Family Medical History: CVA/TIA Brother(s) Family Medical History: Cancer Additional Family Medical History / Comment(s): from lung CA. Medications and Allergies Home Medications Medication Instructions Recorded Confirmed Type Aspirin EC [Ecotrin] 325 mg PO DAILY 09/19/16 07/03/24 History Ramipril 10 mg PO BID 09/19/16 07/03/24 History Rosuvastatin Calcium [Crestor] 10 mg PO HS 09/19/16 07/03/24 History Bumetanide [BUMEX] 0.5 mg PO DAILY 07/03/24 07/03/24 History Docusate [Colace] 100 mg PO DAILY 07/03/24 07/03/24 History Ipratropium-Albuterol Nebulize 3 ml INHALATION RT-TID 07/03/24 07/03/24 History [Duoneb 0.5 mg-3 mg/3 ml Soln] Potassium Chloride [Klor-Con 10 ER] 10 meq PO DAILY 07/03/24 07/03/24 History Vit C/E/Zn/Coppr/Lutein/Zeaxan 1 cap PO DAILY 07/03/24 07/03/24 History [Preservision Areds 2 Softgel] amLODIPine [Norvasc] 5 mg PO BID 07/03/24 07/03/24 History Allergies Allergy/AdvReac Type Severity Reaction Status Date / Time No Known Allergies Allergy Verified 07/03/24 17:57 Physical Exam Vitals: Vital Signs Temp Pulse Pulse Resp BP Pulse Ox 07/05/24 10:07 62 16 07/05/24 09:57 58 L 16 96 07/05/24 07:09 98.7 F 58 L 17 120/60 98 07/05/24 02:56 97.8 F 75 18 138/94 94 L 07/04/24 21:36 84 07/04/24 21:28 78 07/04/24 19:47 97.5 F L 71 16 110/49 97 07/04/24 15:32 70 07/04/24 15:24 72 07/04/24 14:27 97.9 F 82 17 128/54 92 L Intake and Output 07/04/24 07/05/24 07/05/24 22:59 06:59 14:59 Output Total 650 Balance -650 Output: Urine 650 Other: Voiding Method External Catheter Indwelling Catheter # Voids 2 # Bowel Movements 1 Results 07/03/24 15:55 07/03/24 15:55 Current Medications Generic Name Dose Route Start Last Admin Trade Name Freq PRN Reason Stop Dose Admin Acetaminophen 650 mg 07/03/24 17:34 07/04/24 21:59 Acetaminophen Tab 325 Mg Tab PO 650 mg Q4HR PRN Administration Mild Pain or Fever > 100.5 Albuterol/Ipratropium 3 ml 07/03/24 20:00 07/05/24 09:57 Ipratropium-Albuterol 3 Ml Neb INHALATION 3 ml RT-QID TIERRA Administration Albuterol/Ipratropium 3 ml 07/03/24 17:34 Ipratropium-Albuterol 3 Ml Neb INHALATION RT-Q2H PRN Shortness Of Breath Or Wheezing Amlodipine Besylate 5 mg 07/04/24 09:00 07/05/24 11:18 Amlodipine 5 Mg Tab PO Not Given BID [facility] Aspirin 81 mg 07/06/24 09:00 Aspirin 81 Mg PO DAILY [facility] Atorvastatin Calcium 20 mg 07/04/24 21:00 07/04/24 21:59 Atorvastatin 20 Mg Tab PO 20 mg HS [facility] Administration Bumetanide 0.5 mg 07/04/24 09:00 07/05/24 11:18 Bumetanide 0.5 Mg Tablet PO Not Given DAILY [facility] Docusate Sodium 100 mg 07/04/24 09:00 07/05/24 11:18 Docusate 100 Mg Cap PO Not Given DAILY [facility] Azithromycin 500 mg/ Sodium 250 mls @ 250 mls/hr 07/03/24 18:00 07/04/24 17:26 Chloride IVPB 07/05/24 18:59 250 mls/hr DAILY@1800 [facility] Administration Protocol Ceftriaxone Sodium 1 gm/ 50 mls @ 100 mls/hr 07/03/24 18:00 07/05/24 11:11 Sodium Chloride IVPB 100 mls/hr Q24HR [facility] Administration Protocol Lisinopril 40 mg 07/04/24 09:00 07/05/24 11:17 Lisinopril 20 Mg Tab PO Not Given BID [facility] Methylprednisolone Sodium Succinate 60 mg 07/04/24 00:00 07/05/24 05:57 Methylprednisolone Sod Succi 125 Mg/2 Ml Vial IV 60 mg Q6HR TIERRA Administration Multivitamins/Minerals 1 each 07/04/24 09:00 07/05/24 11:17 Vit A,C & T-Dueilt-Zvobmnni 1 Each Tab PO Not Given DAILY [facility] Naloxone HCl 0.2 mg 07/03/24 17:34 Naloxone 0.4 Mg/Ml 1 Ml Vial IVP Q2M PRN Opioid Reversal Potassium Chloride 10 meq 07/04/24 09:00 07/05/24 11:17 Potassium Chloride Er 10 Meq Tab.Er.Prt PO Not Given DAILY [facility] Tamsulosin HCl 0.4 mg 07/04/24 09:00 07/05/24 11:17 Tamsulosin 0.4 Mg Cap.Er.24h PO Not Given BID [facility] Intake and Output 07/04/24 07/05/24 07/05/24 22:59 06:59 14:59 Output Total 650 Balance -650 Output: Urine 650 Other: Voiding Method External Catheter Indwelling Catheter # Voids 2 # Bowel Movements 1 07/03/24 15:55 07/03/24 15:55
[2024-07-05] MEDS: CEFDINIR 300 MG CAP PO SCH (21:20)
--- NOTE | 2024-07-05 23:48 | HP ---
HISTORY AND PHYSICAL HISTORY OF PRESENT ILLNESS: An 88-year-old with unresolved pneumonia. He has been having cough, congestion, productive cough for the past few days. He has a congestive heart failure with leg edema. Medications were adjusted. He is started on IV antibiotics. Cardiology consult. HOME MEDICATIONS: 1. Aspirin 325 daily. 2. Ramipril 10 b.i.d. 3. Crestor 10 daily. 4. Multivitamin. He has a history of valvular heart disease, severe aortic stenosis. Cardiology was consulted. Await further opinion. ALLERGIES: Negative. REVIEW OF SYSTEMS: A 14-point review of systems is positive for lethargy, shortness of breath, generalized weakness. PAST MEDICAL HISTORY: GERD, hearing disorder, sepsis, dyslipidemia, hypertension, osteoarthritis, syncope. PAST SURGICAL HISTORY: Adenoidectomy, appendectomy, CABG surgery, eye surgery, tonsillectomy. FAMILY HISTORY: Mother, coronary artery disease. Father, CHF. Sister, CVA. Brother, cancer. PHYSICAL EXAMINATION: GENERAL: He is somnolent, sleepy, lethargic. VITAL SIGNS: Reviewed. Blood pressure is elevated at 160/91, O2 of 97%, temp 98.2, pulse 72, respiratory rate 16. EXTREMITIES: He has 2 to 3+ edema in his lower legs. LUNGS: Decreased breath sounds. Rales at the bases. CARDIOVASCULAR: S1, S2. NEUROLOGIC: He looks weak and cachectic. He looks his stated age, in which he is 88. EKG showed sinus rhythm. ASSESSMENT: Acute on chronic congestive heart failure, tracheobronchitis versus pneumonia with acute hypoxemic respiratory distress, dehydration, hypovolemic hyponatremia. IV antibiotics, breathing treatments, oxygen, echo. Cardiology consult. Broad-spectrum antibiotics. Prognosis guarded. MMODL / IJN: [id number] /
--- NOTE | 2024-07-06 04:04 | DS ---
DISCHARGE SUMMARY DISCHARGE DIAGNOSES: Acute exacerbation of chronic obstructive pulmonary disease, scalp laceration, syncope, bronchitis versus pneumonia, asthma, chronic obstructive pulmonary disease, aortic stenosis. HOME MEDICATIONS: 1. Bumex 0.5 daily. 2. DuoNeb q.i.d. 3. Flomax 0.4 b.i.d. 4. Omnicef 300 b.i.d. 5. Aspirin 325 daily. 6. Ramipril 10 b.i.d. 7. Crestor 10 daily. 8. Norvasc 5 b.i.d. 9. Colace 100 daily. 10.Klor-Con 10 mEq daily. 11.Bumex 0.5 daily. CONDITION: Stable. PROGNOSIS: Guarded. Ambulate as tolerated. Acute COPD exacerbation. He may have acquired pneumonia/bronchitis, atelectasis of the lungs, scalp laceration, syncope, altered mental status, metabolic encephalopathy secondary to infection, moderate protein-calorie malnutrition, hepatic encephalopathy secondary to dehydration, tracheobronchitis versus pneumonia and COPD. Prognosis guarded. Ambulate as tolerated. Treated with IV antibiotics, IV Lasix, Bumex was given once. The patient stabilized overnight, felt better. I sent him home in stable condition. Follow up as an outpatient. Continue breathing treatments. Wear oxygen when needed. Prognosis guarded. MMODL / IJN: [id number] /
[2024-07-06] MEDS: ASPIRIN 81 MG PO SCH (09:29)
--- NOTE | 2024-07-06 10:57 | CA ---
Transthoracic Echo Report Name: Clif Rodriges Age: 88 Gender: M : 1935 Exam Date: 07/05/2024 10:19 Exam Location: [facility] Ht (in): 66 Wt (lb): 155 Ordering Physician: Preet Borden MD Attending/Referring Phys: Valet Attendant Procedure CPT: Indications: chf Cardiac Hx: Technical Quality: Good Contrast 1: Total Dose (mL): Contrast 2: Total Dose (mL): MEASUREMENTS (Male / Female) Normal Values 2D ECHO LV Diastolic Diameter PLAX 5.1 cm 4.2 - 5.9 / 3.9 - 5.3 cm LV Systolic Diameter PLAX 3.4 cm IVS Diastolic Thickness 0.8 cm 0.6 - 1.0 / 0.6 - 0.9 cm LVPW Diastolic Thickness 0.9 cm 0.6 - 1.0 / 0.6 - 0.9 cm LV Relative Wall Thickness 0.3 LVOT Diameter 2.0 cm LV Diastolic Volume MOD BP 106.6 cm??? 67 - 155 / 56 - 104 cm??? LV Systolic Volume MOD BP 39.3 cm??? 22 - 58 / 19 - 49 cm??? LV Ejection Fraction MOD BP 63.1 % >= 55 % LV Cardiac Index MOD BP 2364.6 cm???/min???m??? LV Diastolic Volume MOD 4C 101.9 cm??? LV Systolic Volume MOD 4C 36.9 cm??? LV Ejection Fraction MOD 4C 63.8 % LV Cardiac Index MOD 4C 2286.1 cm???/min???m??? LV Diastolic Length 4C 7.8 cm LV Systolic Length 4C 6.3 cm LV Diastolic Volume MOD 2C 103.2 cm??? LV Systolic Volume MOD 2C 40.6 cm??? LV Ejection Fraction MOD 2C 60.7 % LV Cardiac Index MOD 2C 2203.3 cm???/min???m??? LV Diastolic Length 2C 8.4 cm LV Systolic Length 2C 6.7 cm LA Volume 59.1 cm??? 18 - 58 / 22 - 52 cm??? LA Volume Index 32.5 cm???/m??? 16 - 28 cm???/m??? Ascending Aorta Diameter 4.3 cm DOPPLER AV Peak Velocity 148.2 cm/s AV Peak Gradient 8.8 mmHg AV Mean Velocity 107.9 cm/s AV Mean Gradient 5.0 mmHg AV Velocity Time Integral 31.0 cm AI Peak Velocity 400.3 cm/s AI Peak Gradient 64.1 mmHg AI Pressure Half Time 336.4 ms LVOT Peak Velocity 120.8 cm/s LVOT Peak Gradient 5.8 mmHg LVOT Velocity Time Integral 25.8 cm LVOT Stroke Volume 80.5 cm??? LVOT Stroke Volume Index 44.9 ml/m??? LVOT Cardiac Index 2832.2 cm???/min???m??? AV Area Cont Eq vti 2.6 cm??? AV Area Cont Eq pk 2.5 cm??? MV Area PHT 3.1 cm??? Mitral E Point Velocity 70.0 cm/s Mitral A Point Velocity 98.9 cm/s Mitral E to A Ratio 0.7 MV Deceleration Time 247.5 ms PV Peak Velocity 104.0 cm/s PV Peak Gradient 4.3 mmHg FINDINGS Left Ventricle Left ventricular ejection fraction is estimated at 60-65 %. Left ventricular cavity size normal. Left ventricular wall thickness normal. No obvious regional wall motion abnormalities. Right Ventricle Borderline enlarged right ventricle with mild to moderately reduced function. Unable to estimate the right ventricular systolic pressure. Right Atrium Normal right atrial size. Left Atrium Mildly increased left atrial volume. Mildly increased left atrial area. Mitral Valve Mitral valve thickened. No evidence for mitral valve prolapse. No mitral stenosis. Trace mitral regurgitation. Aortic Valve Trileaflet aortic valve. No aortic stenosis. Moderate aortic regurgitation. Tricuspid Valve Structurally normal tricuspid valve. No tricuspid stenosis. Trace tricuspid regurgitation. Pulmonic Valve Pulmonic valve not well visualized. No pulmonic stenosis. No pulmonic regurgitation. Pericardium No pericardial effusion. Aorta Aortic annulus normal. Ascending aorta mildly enlarged. CONCLUSIONS Left ventricular ejection fraction is estimated at 60-65 %. No obvious regional wall motion abnormalities. No significant valve dysfunction Ascending Aortic dilatation, measuring at 4.3 cm Previewed by: Dr Hayder Barragan (Electronically Signed) Final Date: 06 July 2024 10:56
--- NOTE | 2024-07-08 00:14 | PN ---
PROGRESS NOTE SUBJECTIVE: The patient was more alert last night. OBJECTIVE: VITAL SIGNS: O2 of 96% on 2 L. Blood pressure is 132/68, temp 97.7, pulse 63, respiratory rate 16 to 18. We will monitor his breathing overnight and his mental status, see if he wakes up. Labs will be redrawn. He has been rehydrated for dehydration. Continue on current treatments. Prognosis guarded. Ambulate as tolerated. Please see further orders. Possible discharge home or rehab or go home based on clinical condition. MMODL / IJN: [id number] /
--- NOTE | 2024-07-08 00:31 | PN ---
PROGRESS NOTE DATE OF SERVICE: 07/06/2024 SUBJECTIVE: An 88-year-old white male. He is not up ambulating, but he is more alert today. He is more alert. He has given appropriate answers. He still has leg weakness. He has physical therapy over the week and see how he does and decide if he needs to go to a intermediate or rehab center. The patient had improvement, at least his metabolic encephalopathy is improved. OBJECTIVE: CARDIOVASCULAR: S1, S2. HEMATOLOGY: Negative Homans. PSYCH: Fair mood and affect. EXTREMITIES: 2+ edema in the legs. NEUROLOGIC: Cranial nerves intact. PLAN: Continue current treatments. Continue treating for possible COPD, tracheobronchitis versus community-acquired pneumonia. Continue physical therapy. Monitor his improvement over the weekend and decide whether he needs to go to a rehab center or home or to hospice. Prognosis guarded. ZACH / ALLISON: [id number] /
[2024-07-08 10:47] LABS: Basophils # (A) 0.01 X 10*3/uL (0.00-0.10); Basophils % (A) 0.1 %; Eosinophils # (A) 0 X 10*3/uL (0.04-0.35); Eosinophils % (A) 0 %; HCT 39.5 % (39.6-50.0); HGB 13.2 g/dL (13.0-17.0); Lymphocytes # (A) 0.32 X 10*3/uL (0.90-5.00); Lymphocytes % (A) 3.6 %; MCH 31.7 pg (27.0-32.0); MCHC 33.4 g/dL (32.0-37.0); Mean Platelet Volume 9.4 FL (9.5-12.2); Monocytes # (A) 0.43 X 10*3/uL (0.20-1.00); Monocytes % (A) 4.8 %; NRBC Per 100 WBC 0 X 10*3/uL (0.00-0.01); Neutrophils # (A) 8.08 X 10*3/uL (1.80-7.70); Neutrophils % (A) 91.2 %; Platelet Count 154 X 10*3/uL (140-440); RBC 4.16 X 10*6/uL (4.40-5.60); RDW 12.7 % (11.5-14.5); WBC 8.87 X 10*3/uL (4.50-10.00)
[2024-07-08 11:09] LABS: ALT 24 U/L (10-49); AST 20 U/L (14-35); Albumin 3.6 g/dL (3.8-4.9); Alkaline Phosphatase 47 U/L (41-126); BUN/Creat Ratio 49.33 Ratio (12.00-20.00); Blood Urea Nitrogen 29.6 mg/dL (9.0-27.0); Calcium 8.8 mg/dL (8.7-10.3); Chloride 103 mmol/L (96-109); Globulin 1.5 g/dL (1.6-3.3); Glucose 147 mg/dL (70-110); Potassium 4.1 mmol/L (3.5-5.5); Sodium 137 mmol/L (135-145); Total Bilirubin 0.4 mg/dL (0.3-1.2); Total Protein 5.1 g/dL (6.2-8.2)
[2024-07-08] MEDS: methylPREDNISolone SOD SUCCI 40 MG/ML 1 ML VIAL IV SCH (23:36)
--- NOTE | 2024-07-09 17:32 | PN ---
PROGRESS NOTE SUBJECTIVE: 88-year-old white male. He is mostly sleepy and lethargic, but he has woken up today and he is answering some questions. He is eating some small amount of food. We are going to watch him, possibly go to [facility] next week come up with other options for him. wakes up and starts eating more. OBJECTIVE: CARDIOVASCULAR: S1, S2. LUNGS: Scattered rhonchi and wheeze. HEMATOLOGY: Negative for Homans. PSYCH: Fair mood and affect. ASSESSMENT AND PLAN: Continue to watch his nutrition and mental status COPD, viral illness, dementia, metabolic encephalopathy. Continue on current medications, steroids, and broad- spectrum antibiotics. Prognosis guarded. MMODL / IJN: [id number] /
--- NOTE | 2024-07-10 10:29 | PN ---
PROGRESS NOTE SUBJECTIVE: 88-year-old white male. He is more alert and oriented. He is talking today. He is on his oxygen. He is doing his breathing treatments. OBJECTIVE: VITAL SIGNS: He sat at 96 on 2 L, 95 on 2 L. Pulse 103, respiratory rate , blood pressure 130s to 150s over 60s to 70s, temp 98. CARDIOVASCULAR: S1, S2. LUNGS: Scattered wheeze x4. GI: Soft. PSYCH: He looked with good eye contact giving appropriate answers. He is starting to swell his food and some pills today. He is doing better. Most likely, he had bronchitis and viral syndrome, metabolic encephalopathy secondary to above and worsening dementia because of that chronic weakness, history of Parkinson's, dehydration. Continue current treatment. PT/OT. Possibly go to [facility] where the family wants him to go tomorrow if he is better. ZACH / MICHAELN: [id number] /
--- NOTE | 2024-07-11 12:19 | CDI ---
Documentation Clarification Form Date: 07/11/2024 11:26:00 AM From: Ainsley Bergeron RN, CCDS Phone: [phone] Admit Date: 07/06/2024 11:26:00 AM Patient Name: Clif Rodriges Visit Number: [id number] Discharge Date: ATTENTION: The Clinical Documentation Specialists (CDI) and [facility] Coding Staff appreciate your assistance in clarifying documentation. Please respond to the clarification below the line at the bottom and electronically sign. The CDI & [facility] Coding staff will review the response and follow-up if needed. Please note: Queries are made part of the Legal Health Record. If you have any questions, please contact the author of this message via ITS. Doctor. Preet Borden The patients principal diagnosis the diagnosis that was chiefly responsible for the admission - has not been clearly identified and clarification is requested. The patient presented with the following to ED on 07/03/24 unresolved pneumonia, shortness of breath, mental status change. Admit 07/06/24 History/Risk factors: GERD/Reflux, Hearing Disorder / Deafness, Hyperlipidemia, Hypertension, Osteoarthritis (OA), Syncope, COPD, CHF Clinical Indicators: 88-year-old male present with worsening productive cough with mucus with unresolved pneumonia. Lab findings: 07/08 WBC 8.87, Neutrophils 8.08, Procalcitonin 0.05 Na+ 126 07/03 CXR: Neg 07/03CT Chest: Neg, pulmonary nodule 07/04 CT angio: No PE Vital Sign: 07/06 141/65 75 16 95% 2L NC Treatment: Rocephin 1 GM IVPB 1118- 07/05. 07/08-/07/11 Solu-Medrol 60 MG IV Q 6 HRS (Titrate per orders) Duoneb 0.5 MG Inhalation QID ASA 325 PO Daily Bumex I MG IVP Once, then 0, 5 MG PO Daily In your professional opinion, can you please clarify which diagnosis, after study, was the reason chiefly responsible for the admission? [ ] Acute tracheobronchitis [ ] Pneumonia further specify if pneumonia ruled in___ or ruled out [ ] Acute COPD Exacerbation [ ] Other, please specify [ ] Unable to determine (Template Last Revised: October 2020) MTDD
[2024-07-11 14:00] VITALS: BP 113/49; RESP 15; TEMP 97.9
[2024-07-11 16:39] VITALS: PULSE 76
== END 2024-07-11 18:53 | disposition home health service (06) | DRG 190 ==
LOC: EC 15:04 → 4SSUR 17:35 → OBSVTOIN 07-06 11:26 → 4SSUR 07-10 23:17
PROVIDERS: ADMIT Family Medicine; ATTEND Family Medicine
DX: J44.1 Chronic obstructive pulmonary disease with (acute) exacerbation (principal); G93.41 Metabolic encephalopathy; J18.9 Pneumonia, unspecified organism; I50.32 Chronic diastolic (congestive) heart failure; F02.82 Dementia in other diseases classified elsewhere, unspecified severity, with psychotic disturbance; E87.1 Hypo-osmolality and hyponatremia; J44.0 Chronic obstructive pulmonary disease with (acute) lower respiratory infection; J40 Bronchitis, not specified as acute or chronic; G20.A1 Parkinson's disease without dyskinesia, without mention of fluctuations; E78.5 Hyperlipidemia, unspecified; I11.0 Hypertensive heart disease with heart failure; S01.01XA Laceration without foreign body of scalp, initial encounter; I08.1 Rheumatic disorders of both mitral and tricuspid valves; I35.0 Nonrheumatic aortic (valve) stenosis; E86.0 Dehydration; E86.1 Hypovolemia; H91.90 Unspecified hearing loss, unspecified ear; I25.10 Atherosclerotic heart disease of native coronary artery without angina pectoris; Z79.82 Long term (current) use of aspirin; Z79.899 Other long term (current) drug therapy; Z82.49 Family history of ischemic heart disease and other diseases of the circulatory system; Z87.891 Personal history of nicotine dependence; Z95.1 Presence of aortocoronary bypass graft
CPT/HCPCS: 36415; 71046; 71250; 71275; 80053; 83605; 83735; 83880; 84145; 85025; 85379; 87040; 87070; 87086; 87205; 87636; 93005; 93306; 93970; 94640; 94760; 96365; 96367; 96375; 99285